=== PATIENT | male | born 1985 | race Caucasian/White ===

== ENCOUNTER 2017-04-02 16:11 | Emergency (ER) | payer SELFPAY ==
[2017-04-02 16:21] VITALS: BMI 30.1
--- NOTE | 2017-04-02 16:45 | PDOC ---
History of Present Illness - History of Present Illness Initial Comments: 04/02/17 16:59 Patient is a 31 year old male with no significant medical hx who is presenting to the ED with one day of body aches, subjective fever, sore throat, and nasal congestion. Patient states hes been working outside all day and felt dizzy while he was driving, as if he was going to pass out. He reports his symptoms started today, with subjective fevers described as hot and cold flashes. The patient also complains of all over body aches, nasal congestion, and sore throat. Denies abdominal pain, nausea, vomiting, chest pain, shortness of breath , diarrhea, or urinary complaints. <Tana Silva - Last Filed: 04/02/17 16:59> <Mily Blue - Last Filed: 04/04/17 07:51> - General Chief Complaint: Lightheaded Stated Complaint: DIZZINESS Time Seen by Provider: 04/02/17 16:35 Past History <Tana Silva - Last Filed: 04/02/17 16:59> - Past Medical History Other medical history: NONE - Immunization History Td Vaccination: (unknown) TDAP Vaccination: (unknown) Immunization Up to Date: Yes - Psycho/Social/Smoking Cessation Hx Anxiety: No Suicidal Ideation: No Smoking Status: Yes Smoking History: Never smoked Years of Tobacco Use: 0 Number of Cigarettes Smoked Daily: 10 Cigars Per Day: 0 Hx Alcohol Use: No Drug/Substance Use Hx: No Substance Use Type: None <Mily Blue - Last Filed: 04/04/17 07:51> - Past Medical History Allergies/Adverse Reactions: Allergies Allergy/AdvReac Type Severity Reaction Status Date / Time No Known Allergies Allergy Verified 04/02/17 16:22 Home Medications: Ambulatory Orders No Home Medications 0 dose .ROUTE UTDICT 06/27/13 Review of Systems - Review of Systems Comments:: 04/02/17 16:59 GENERAL/CONSTITUTIONAL: Fever, chills, body aches. No weakness. HEAD, EYES, EARS, NOSE AND THROAT: Nasal congestion, sore throat. No change in vision. No ear pain or discharge. CARDIOVASCULAR: No chest pain or shortness of breath. RESPIRATORY: No cough, wheezing, or hemoptysis. GASTROINTESTINAL: No nausea, vomiting, diarrhea or constipation. GENITOURINARY: No dysuria, frequency, or change in urination. MUSCULOSKELETAL: No joint or muscle swelling or pain. No neck or back pain. ENDOCRINE: No increased thirst. No abnormal weight change. SKIN: No rash NEUROLOGIC: No headache, vertigo, loss of consciousness, or change in strength/ sensation. <Tana Silva - Last Filed: 04/02/17 16:59> *Physical Exam - Vital Signs Last Vital Signs Temp Pulse Resp BP Pulse Ox 99.6 F 108 H 20 133/88 97 04/02/17 16:18 04/02/17 16:18 04/02/17 16:18 04/02/17 16:18 04/02/17 16:18 <Tana Silav - Last Filed: 04/02/17 16:59> - Vital Signs Last Vital Signs Temp Pulse Resp BP Pulse Ox 99.6 F 108 H 20 133/88 97 04/02/17 16:18 04/02/17 16:18 04/02/17 16:18 04/02/17 16:18 04/02/17 16:18 - Physical Exam Comments: GENERAL: Awake, alert, and fully oriented, in no acute distress. +Facial flushing. HEAD: No signs of trauma EYES: PERRLA, EOMI, sclera anicteric, conjunctiva clear ENT: Auricles normal inspection, hearing grossly normal, nares patent, oropharynx erythematous with B/L tonsillar hypertrophy. Dry mucosa NECK: Normal ROM, supple, no lymphadenopathy, JVD, or masses LUNGS: Breath sounds equal, clear to auscultation bilaterally. No wheezes, and no crackles HEART: Tachycardia, normal S1 and S2, no murmurs, rubs or gallops ABDOMEN: Soft, nontender, normoactive bowel sounds. No guarding, no rebound. No masses EXTREMITIES: Normal range of motion, no edema. No clubbing or cyanosis. No cords, erythema, or tenderness NEUROLOGICAL: Cranial nerves II through XII grossly intact. Normal speech, normal gait SKIN: Warm, Dry, normal turgor, no rashes or lesions noted. <Mily Blue - Last Filed: 04/04/17 07:51> ED Treatment Course - LABORATORY CBC & Chemistry Diagram: 04/02/17 18:07 04/02/17 18:07 <Mily Blue - Last Filed: 04/04/17 07:51> Medical Decision Making - Medical Decision Making Pt improved significantly with IV hydration and antipyretics. He has symptoms of URI which are likely source of fever- nasal congestion, cough. Stable for DC home. <Mily Blue - Last Filed: 04/04/17 07:51> *DC/Admit/Observation/Transfer - Attestations Scribe Attestion: 04/02/17 17:01 Documentation prepared by Tana Silva, acting as biomedical manager for Mily Blue MD. <Tana Silva - Last Filed: 04/02/17 16:59> - Discharge Dispostion Admit: No <Mily Blue - Last Filed: 04/04/17 07:51> Diagnosis at time of Disposition: Fever Qualifiers: Fever type: unspecified Qualified Code(s): R50.9 - Fever, unspecified - Discharge Dispostion Disposition: HOME Condition at time of disposition: Stable - Patient Instructions Printed Discharge Instructions: DI for Fever (Symptom) -- Adult
[2017-04-02] MEDS ORDERED: SODIUM CHLORIDE 1,000 ML IV STA ×2 (16:54→20:57)
[2017-04-02] MEDS ORDERED: KETOROLAC TROMETHAMINE 30 MG/1 ML VIAL IVPUSH ONE (16:54)
[2017-04-02] MEDS ORDERED: KETOROLAC TROMETHAMINE 30 MG/1 ML VIAL ONE (17:54)
[2017-04-02 18:41] LABS: BASOPHIL 0.2 % (0-2.0); MCH 30.1 pg (25.7-33.7); MCHC 34.1 g/dl (32.0-35.9); MEAN CELL VOLUME 88.2 fl (80-96); MEAN PLT VOLUME 9.7 fl (7.5-11.1); NEUTROPHILS 89.3 % (42.8-82.8); PLATELET COUNT 195 K/MM3 (134-434); RDW 12.7 % (11.9-15.9); WHITE BLOOD COUNT 13.7 K/mm3 (4.0-10.0)
[2017-04-02 19:08] LABS: ALK PHOS 92 U/L (45-117); ANION GAP 9 (8-16); BILIRUBIN,TOTAL 0.7 mg/dL (0.2-1.0); CO2 27 mmol/L (21-32); CREATININE 0.9 mg/dL (0.7-1.3); GLUCOSE,RANDOM 105 mg/dL (74-106); SGOT/AST 28 U/L (15-37); SGPT/ALT 90 U/L (12-78); TOT PROT 7.1 g/dl (6.4-8.2)
[2017-04-02] MEDS ORDERED: ACETAMINOPHEN 325 MG TABLET (FP) PO ONE (21:11)
[2017-04-02] MEDS ORDERED: ACETAMINOPHEN 325 MG TABLET (FP) ONE (21:14)
[2017-04-02] MEDS ORDERED: IBUPROFEN 600 MG TABLET (FP) PO ONE ×2 (23:00→23:12)
[2017-04-02 23:17] VITALS: BP 126/74; PULSE 84; TEMP 98.8
== END 2017-04-02 23:17 | disposition home or self-care (01) ==
LOC: JER 16:11
PROC: 3E0337Z Introduction of Electrolytic and Water Balance Substance into Peripheral Vein, Percutaneous Approach (ICD-10-PCS; principal; 2017-04-02)
PROC: 3E0333Z Introduction of Anti-inflammatory into Peripheral Vein, Percutaneous Approach (ICD-10-PCS; 2017-04-02)
DX: R50.9 Fever, unspecified (principal)
CPT/HCPCS: 36415; 71020-TC; 80053; 85025; 87070; 87430; 99284-25

== ENCOUNTER 2017-12-29 09:14 | Inpatient (IN) | payer SELFPAY ==
[2017-12-29 09:32] VITALS: BMI 31.5
--- NOTE | 2017-12-29 11:14 | PDOC ---
History of Present Illness - General History Source: Patient Exam Limitations: No Limitations - History of Present Illness Initial Comments: 12/29/17 16:20 The patient is a 32 year old male, with no significant past medical history, who presents to the emergency department with, progressively worsening constant right upper quadrant abdominal pain beginning 6 days ago. The patient states the right upper quadrant abdominal pain began at rest and describes the pain as a sharp burning pain rated 10/10 that feels like a band like sensation radiating around to his right back and right lower quadrant. He denies any trauma to the area. The patient states the right upper quadrant abdominal pain is made worse with movement and after eating. The patient states he has been able to tolerate foods and liquids but has been eating less secondary to the abdominal pain. The patient reports one episode of nausea with bright yellow emesis (non bloody) this morning. The patient states his last bowel movement was last night which he describes as normal (denies melena, hematochezia or diarrhea). There patient also states he has had intermittent lower right sided chest pain when he breathes but states he does not experience the right sided chest pain all of the time. He denies any recent fevers, chills, or headache. He denies any recent diarrhea or constipation. He denies any recent shortness of breath. He denies any recent dysuria, frequency, urgency or hematuria. Allergies: NKA Primary Care Physician: Dr. Kannan Reese <Calixto Frye - Last Filed: 12/29/17 16:20> <John Lucas - Last Filed: 12/29/17 17:48> - General Chief Complaint: Pain Stated Complaint: CHEST PAIN, ABD PAIN Time Seen by Provider: 12/29/17 10:35 Past History <Calixto Frye - Last Filed: 12/29/17 16:20> - Past Medical History COPD: No DVT: No - Immunization History Td Vaccination: (unknown) TDAP Vaccination: (unknown) Immunization Up to Date: Yes - Suicide/Smoking/Psychosocial Hx Smoking Status: Yes Smoking History: Never smoked Years of Tobacco Use: 0 Have you smoked in the past 12 months: No Number of Cigarettes Smoked Daily: 10 Cigars Per Day: 0 Information on smoking cessation initiated: Yes Hx Alcohol Use: No Drug/Substance Use Hx: No Substance Use Type: None <John Lucas - Last Filed: 12/29/17 17:48> - Past Medical History Allergies/Adverse Reactions: Allergies Allergy/AdvReac Type Severity Reaction Status Date / Time No Known Allergies Allergy Verified 12/29/17 09:28 Home Medications: Ambulatory Orders No Home Medications 0 dose .ROUTE UTDICT 06/27/13 Review of Systems - Review of Systems Comments:: 12/29/17 16:21 GENERAL/CONSTITUTIONAL: No fever or chills. No weakness. HEAD, EYES, EARS, NOSE AND THROAT: No change in vision. No ear pain or discharge. No sore throat. GASTROINTESTINAL: +Right upper quadrant abdominal pain. +Nausea. +Vomiting. No diarrhea or constipation. GENITOURINARY: No dysuria, frequency, or change in urination. CARDIOVASCULAR: +Right sided chest pain. No shortness of breath. RESPIRATORY: No cough, wheezing, or hemoptysis. MUSCULOSKELETAL: No joint or muscle swelling or pain. No neck or back pain. SKIN: No rash NEUROLOGIC: +Dizziness (Resolved). No headache, loss of consciousness, or change in strength/sensation. ENDOCRINE: No increased thirst. No abnormal weight change. HEMATOLOGIC/LYMPHATIC: No anemia, easy bleeding, or history of blood clots. ALLERGIC/IMMUNOLOGIC: No hives or skin allergy. <Calixto Frye - Last Filed: 12/29/17 16:20> *Physical Exam - Vital Signs Last Vital Signs Temp Pulse Resp BP Pulse Ox 98.6 F 72 18 167/115 100 12/29/17 09:29 12/29/17 09:29 12/29/17 09:29 12/29/17 09:29 12/29/17 09:29 - Physical Exam Comments: 12/29/17 16:21 GENERAL: Awake, alert, and fully oriented, in no acute distress HEAD: No signs of trauma EYES: PERRLA, EOMI, sclera anicteric, conjunctiva clear ENT: Auricles normal inspection, hearing grossly normal, nares patent, oropharynx clear without exudates. Moist mucosa NECK: Normal ROM, supple, no lymphadenopathy, JVD, or masses LUNGS: Breath sounds equal, clear to auscultation bilaterally. No wheezes, and no crackles HEART: Regular rate and rhythm, normal S1 and S2, no murmurs, rubs or gallops ABDOMEN: +Right upper quadrant tenderness. +cardoza's sign. Soft, normoactive bowel sounds. No guarding, no rebound. EXTREMITIES: Normal range of motion, no edema. No clubbing or cyanosis. No cords , erythema, or tenderness BACK: No midline spinal tenderness in cervical/thoracic/lumbar region NEUROLOGICAL: Normal speech, cranial nerves intact, negative pronator drift, 5/ 5 strength in all 4 extremities, normal sensation to light touch in all 4 extremities, normal cerebellar exam, normal gait, normal reflexes and tone SKIN: Warm, Dry, normal turgor, no rashes or lesions noted. Bedside sono with thickened GB wall w/o pericholecystic fluid and large stone in GB neck with shadowing. <Calixto Frye - Last Filed: 12/29/17 16:20> - Vital Signs Last Vital Signs Temp Pulse Resp BP Pulse Ox 98.6 F 72 18 167/115 100 12/29/17 09:29 12/29/17 09:29 12/29/17 09:29 12/29/17 09:29 12/29/17 09:29 <John Lucas - Last Filed: 12/29/17 17:48> ED Treatment Course - LABORATORY CBC & Chemistry Diagram: 12/29/17 11:32 12/29/17 11:32 - ADDITIONAL ORDERS Additional order review: Laboratory Results 12/29/17 12/29/17 11:54 11:32 Sodium 143 Potassium 4.6 Chloride 106 Carbon Dioxide 28 Anion Gap 9 BUN 11 Creatinine 0.9 Creat Clearance w eGFR > 60 Random Glucose 94 Calcium 9.5 Total Bilirubin 0.5 D AST 26 ALT 97 H Alkaline Phosphatase 92 Troponin I < 0.02 Total Protein 7.4 Albumin 4.0 Lipase 166 Urine Color Ltyellow Urine Appearance Slcloudy Urine pH 7.0 Ur Specific [place] 1.020 Urine Protein Negative Urine Glucose (UA) Negative Urine Ketones Negative Urine Blood Negative Urine Nitrite Negative Urine Bilirubin Negative Urine Urobilinogen Negative Ur Leukocyte Esterase Negative 12/29/17 11:32 RBC 5.17 MCV 86.7 MCHC 33.6 RDW 13.5 MPV 9.4 Neutrophils % 68.1 D Lymphocytes % 22.3 D Monocytes % 7.0 Eosinophils % 2.0 D Basophils % 0.6 - RADIOLOGY Radiograph Interpretation: 12/29/17 13:11 EXAM#: TYPE/EXAM: RESULT: [id number] RAD/CHEST X-RAY PORTABLE* AP portable chest: Epigastric pain Since 04/02/2017, there are clear lungs and sharp angles. There is a large heart. The angles are sharp. The bones and soft tissues are intact. Aortic and hilar contours are unremarkable. Impression: Large heart. No acute chest pathology. Slight change since 2016. Reported By: Eric Carrillo MD 12/29/17 14:08 EXAM#: TYPE/EXAM: RESULT: [id number] US/ABDOMEN US -LIMITED HISTORY PROVIDED: Right upper quadrant pain. Real time examination of the abdomen demonstrates the following: The gallbladder is slightly thickened and does contain a 1.4 cm calculus wedged within the neck of the gallbladder. The party director describes a positive Cardoza's sign and the possibility of acute cholecystitis cannot be excluded. Clinical correlation is advised. A follow-up HIDA scan may be warranted. There is no evidence of intra or extrahepatic biliary duct dilatation. The liver is normal in size. It is hyperechoic in texture consistent with diffuse fatty infiltration. No discrete intrahepatic masses are identified. Hepatopedal flow is documented within the main portal vein. The pancreas is poorly visualized due to overlying bowel gas. There is no evidence of hydronephrosis or acute abnormalities of the right kidney. There is no evidence of AAA. The IVC is patent. IMPRESSION: 1. Thick-walled gallbladder with large calculus and positive Cardoza's sign. The possibility of acute cholecystitis cannot be excluded. Clinical correlation and follow-up is recommended. 2. Diffuse fatty infiltration of the liver. Please see above discussion. Reported By: Ronaldo Damico MD - Medications Given in the ED: ED Medications Discontinued Medications Generic Name Dose Route Start Last Admin Trade Name Freq PRN Reason Stop Dose Admin Acetaminophen 1,000 mg 12/29/17 11:17 12/29/17 11:49 Ofirmev Injection - IVPB 12/29/17 11:18 1,000 mg ONCE ONE Administration Sodium Chloride 1,000 mls @ 1,000 mls/hr 12/29/17 11:16 12/29/17 11:49 Normal Saline - IV 12/29/17 12:15 1,000 mls/hr ASDIR STA Administration Famotidine/Sodium Chloride 20 mg in 50 mls @ 100 mls/hr 12/29/17 12:15 12:23 Pepcid 20 Mg Premixed Ivpb - IVPB 12/29/17 12:44 100 mls/hr ONCE ONE Administration Ondansetron HCl 4 mg 12/29/17 11:16 12/29/17 11:49 Zofran Injection IVPUSH 12/29/17 11:17 4 mg ONCE ONE Administration <Calixto Frye - Last Filed: 12/29/17 16:20> - LABORATORY CBC & Chemistry Diagram: 12/29/17 11:32 12/29/17 11:32 <John Lucas - Last Filed: 12/29/17 17:48> Medical Decision Making - Medical Decision Making 12/29/17 14:[address] Phelps at 2:12pm. Case discussed. Call placed to Dr. Jaramillo at 2:13 pm. Pending call back. Second call placed to Dr. Jaramillo at 3:20 pm. Case discussed. <Calixto Frye - Last Filed: 12/29/17 16:20> - Medical Decision Making 12/29/17 11:30 32-year-old male with no significant past medical history presents emergency Department with 6 days of progressive right upper quadrant and right flank pain. Vitals in the ED remarkable for hypertension on arrival, however on my exam blood pressure down to 154/90. Differential includes but not limited to cholecystitis versus appendicitis versus pancreatitis versus gastritis. Plan: -labs -US -UA -pain control -antiemetics 12/29/17 15:[address] Phelps who will see pt. Discussed case with Dr. jaramillo who accepts pt to med/surg Case discussed in detail with admitting physician including history, physical exam and ancillary studies. Admitting physician has assumed care for the patient, will follow all pending diagnostics and will complete the evaluation and treatment. <John Lucas - Last Filed: 12/29/17 17:48> *DC/Admit/Observation/Transfer - Attestations Scribe Attestion: 12/29/17 14:14 Documentation prepared by Calixto Frye, acting as center medical director for John Lucas MD. <Calixto Frye - Last Filed: 12/29/17 16:20> - Discharge Dispostion Admit: Yes - Attestations Physician Attestion: 12/29/17 15:56 I, Dr. John Lucas MD, attest that this document has been prepared under my direction and personally reviewed by me in its entirety. I further attest, that it accurately reflects all work, treatment, procedures and medical decision -making performed by me. <John Lucas - Last Filed: 12/29/17 17:48> Diagnosis at time of Disposition: Acute calculous cholecystitis - Discharge Dispostion Condition at time of disposition: Stable
[2017-12-29] MEDS ORDERED: SODIUM CHLORIDE 1,000 ML IV STA (11:16)
[2017-12-29] MEDS ORDERED: ONDANSETRON 4 MG/2 ML VIAL IVPUSH ONE (11:16)
[2017-12-29] MEDS ORDERED: ACETAMINOPHEN 1000 MG/100 ML VIAL (NON FORMULARY) IVPB ONE (11:17)
[2017-12-29] MEDS ORDERED: ONDANSETRON 4 MG/2 ML VIAL ONE (11:38)
[2017-12-29] MEDS ORDERED: ACETAMINOPHEN INJECTION 100 ML IVPB ONE (11:38)
[2017-12-29 11:56] LABS: BASO % 0.6 % (0-2.0); HEMATOCRIT 44.9 % (35.4-49); HEMOGLOBIN 15.1 GM/dL (11.7-16.9); LYMPH % 22.3 % (8-40); MCH 29.1 pg (25.7-33.7); MCHC 33.6 g/dl (32.0-35.9); MEAN CELL VOLUME 86.7 fl (80-96); MEAN PLT VOLUME 9.4 fl (7.5-11.1); NEUT % 68.1 % (42.8-82.8); PLATELET COUNT 258 K/MM3 (134-434); RBC 5.17 M/mm3 (4.00-5.60); RDW 13.5 % (11.9-15.9)
[2017-12-29 12:08] LABS: URINE APPEARANCE SLCLOUDY; URINE BILIRUBIN NEGATIVE (<2.0 mg/dL); URINE BLOOD NEGATIVE (NEGATIVE); URINE COLOR LTYELLOW; URINE GLUCOSE (UA) NEGATIVE (NEGATIVE); URINE KETONE NEGATIVE (NEGATIVE); URINE LEUK ESTERASE NEGATIVE (NEGATIVE); URINE NITRITE NEGATIVE (NEGATIVE); URINE PROTEIN NEGATIVE (NEGATIVE); URINE UROBILINOGEN NEGATIVE mg/dL (0.2-1.0)
[2017-12-29] MEDS ORDERED: FAMOTIDINE 20 MG/50 ML IVPB 20 MG/50 ML MG IVPB ONE (12:15)
[2017-12-29 12:28] LABS: ANION GAP 9 (8-16); BLOOD UREA NITROGEN 11 mg/dL (7-18); CALCIUM 9.5 mg/dL (8.5-10.1); CHLORIDE 106 mmol/L (98-107); CO2 28 mmol/L (21-32); CREATININE 0.9 mg/dL (0.7-1.3); GLUCOSE,RANDOM 94 mg/dL (74-106); LIPASE 166 U/L (73-393); POTASSIUM 4.6 mmol/L (3.5-5.1); SGOT/AST 26 U/L (15-37); SGPT/ALT 97 U/L (12-78); SODIUM 143 mmol/L (136-145)
[2017-12-29 12:32] LABS: ALK PHOS 92 U/L (45-117); BILIRUBIN,TOTAL 0.5 mg/dL (0.2-1.0); TOT PROT 7.4 g/dl (6.4-8.2)
[2017-12-29] MEDS ORDERED: AMPICILLIN NA/SULBACTAM NA 1.5 GM in SODIUM CHLORIDE 100 ML IVPB ONE ×2 (14:26→16:00)
--- NOTE | 2017-12-29 14:41 | EKG ---
Test Reason : Blood Pressure : / mmHG Vent. Rate : 075 BPM Atrial Rate : 075 BPM P-R Int : 156 ms QRS Dur : 098 ms QT Int : 380 ms P-R-T Axes : 039 045 029 degrees QTc Int : 424 ms NORMAL SINUS RHYTHM NORMAL ECG NO PREVIOUS ECGS AVAILABLE Confirmed by FRANCINE PARISI MD ([id number]) on 12/29/2017 2:41:22 PM Referred By: Confirmed By:FRANCINE PARISI MD
[2017-12-29] MEDS: LACTATED RINGERS SOLUTION 1,000 ML/1,000 ML INFUS.BAG IV SCH (15:23)
--- NOTE | 2017-12-29 19:42 | HP ---
Admitting History and Physical - Admission History of Present Illness: Pt is a 32 y/o male w/ no significant PMH who presented to the ER bc of abdominal pain.Pt states for about the past week he has been having this RUQ abdominal pain wc at times feels like a band like pain across his entire abdomen to his back. Pt had an episode of vomiting this am. Pt has noticed that the pain was worse after eating. In the er pt had abdominal US wc showed thick walled gallbladder w/ large calculus. - Past Surgical History Past Surgical History: Yes: None - Smoking History Smoking history: Never smoked Have you smoked in the past 12 months: No Aproximately how many cigarettes per day: 10 - Alcohol/Substance Use Hx Alcohol Use: No Home Medications - Allergies Allergies/Adverse Reactions: Allergies Allergy/AdvReac Type Severity Reaction Status Date / Time No Known Allergies Allergy Verified 12/29/17 09:28 - Home Medications Home Medications: Ambulatory Orders No Home Medications 0 dose .ROUTE UTDICT 06/27/13 Family Disease History - Family Disease History Family History: Unremarkable Review of Systems - Review of Systems Constitutional: reports: No Symptoms Eyes: reports: No Symptoms HENT: reports: No Symptoms Neck: reports: No Symptoms Cardiovascular: reports: No Symptoms Respiratory: reports: No Symptoms Gastrointestinal: reports: Abdominal Pain, Nausea, Vomiting Genitourinary: reports: No Symptoms Physical Examination Vital Signs: Vital Signs Temperature 98.1 F 12/29/17 18:58 Pulse Rate 61 12/29/17 18:58 Respiratory Rate 16 12/29/17 18:58 Blood Pressure 113/60 12/29/17 18:58 O2 Sat by Pulse Oximetry (%) 99 12/29/17 19:02 Constitutional: Yes: Well Nourished Eyes: Yes: WNL HENT: Yes: WNL Neck: Yes: WNL, Supple Cardiovascular: Yes: WNL, Regular Rate and Rhythm Respiratory: Yes: WNL, Regular, CTA Bilaterally Gastrointestinal: Yes: Abdomen, Obese, Tenderness (RUQ tenderness on palpation ( -) guarding/rebound) Labs: CBC, BMP 12/29/17 11:32 12/29/17 11:32 Problem List - Problems (1) Abdominal pain Assessment/Plan: Probalby due to acute cholecystitis Cont IVF/NPO Surgical consult Code(s): R10.9 - UNSPECIFIED ABDOMINAL PAIN
[2017-12-30] MEDS: LACTATED RINGERS SOLUTION 1,000 ML/1,000 ML INFUS.BAG IV SCH ×2 (02:18→12:11)
[2017-12-30 07:55] LABS: BASO % 0.7 % (0-2.0); HEMATOCRIT 43.7 % (35.4-49); HEMOGLOBIN 14.8 GM/dL (11.7-16.9); LYMPH % 25.2 % (8-40); MCH 29.2 pg (25.7-33.7); MCHC 33.8 g/dl (32.0-35.9); MEAN CELL VOLUME 86.5 fl (80-96); MEAN PLT VOLUME 9.2 fl (7.5-11.1); MONO % 6.5 % (3.8-10.2); NEUT % 65.6 % (42.8-82.8); PLATELET COUNT 233 K/MM3 (134-434); RBC 5.05 M/mm3 (4.00-5.60); RDW 13.5 % (11.9-15.9); WHITE BLOOD COUNT 6.7 K/mm3 (4.0-10.0)
[2017-12-30 08:09] LABS: INR 0.99 (0.82-1.09); PROTHROMBIN TIME (PATIENT) 11.2 SEC (9.98-11.88)
--- NOTE | 2017-12-30 08:11 | CONSULT ---
- Consultation REQUESTING PROVIDER: Ameya Phelps (General Surgery) CONSULT REQUEST: We have been asked to surgically evaluate this patient for RUQ abd pain. PCP: Mily Jaramillo HPI: Called to evaluate 32 yo male without any PMHx. Presents to [facility] ED with c/o RUQ pain radiating to right flank x 1 week. He thought it was "gas". Using Tylenol and rolaids without relief. States he had a singulair episode of n/v. Never experienced this before. While in the ED patient had an ultrasound which identified a thickened gb wall, large calculus, sonographic cardoza's sign. Patient received Unasyn 1.5 gm. Currently resting comfortably. Denies fever, chills, cp, irregular heart rate, cough, harley, sob, melena, hematochezia, dysuria, frequency, urgency, hesitancy, or hematuria. PMHx: Denies. PSHx: Denies. Home Meds: Denies. Allergies: NKDA ROS: All systems reviewed and considered negative except for what's contained in HPI. PHYSICAL EXAM: GENERAL: Awake, alert, and fully oriented, in no acute distress. HEAD: Normal with no signs of trauma. EYES: PERRL, sclera anicteric, conjunctiva clear. NECK: Normal ROM, supple without lymphadenopathy, JVD, or masses. LUNGS: cta bilat anteriorly HEART: rrr ABD: Soft, + Cardoza's sign. Mild RUQ guarding. MUSCULOSKELETAL: No CVA tenderness bilat UE: 2+ pulses, warm, well-perfused. No cyanosis. Cap refill <2 seconds. No peripheral edema. LE: 2+ pulses, warm, well-perfused. No calf tenderness. No peripheral edema. NEUROLOGICAL: Normal speech, gait not observed. PSYCH: Cooperative. Good eye contact. Appropriate mood and affect. SKIN: Warm, dry, normal turgor, no rashes or lesions noted. Last Vital Signs Temp Pulse Resp BP Pulse Ox 97.8 F 59 L 20 125/70 98 12/30/17 06:00 12/30/17 06:00 12/30/17 06:00 12/30/17 06:00 12/29/17 21:00 Hepatic Panel Total Bilirubin 0.5 mg/dL (0.2-1.0) D 12/29/17 11:32 AST 26 U/L (15-37) 12/29/17 11:32 ALT 97 U/L (12-78) H 12/29/17 11:32 Alkaline Phosphatase 92 U/L (45-117) 12/29/17 11:32 Albumin 4.0 g/dl (3.4-5.0) 12/29/17 11:32 Lab Results WBC 7.0 K/mm3 (4.0-10.0) D 12/29/17 11:32 RBC 5.17 M/mm3 (4.00-5.60) 12/29/17 11:32 Hgb 15.1 GM/dL (11.7-16.9) 12/29/17 11:32 Hct 44.9 % (35.4-49) 12/29/17 11:32 MCV 86.7 fl (80-96) 12/29/17 11:32 MCHC 33.6 g/dl (32.0-35.9) 12/29/17 11:32 RDW 13.5 % (11.9-15.9) 12/29/17 11:32 Plt Count 258 K/MM3 (134-434) D 12/29/17 11:32 Sodium 143 mmol/L (136-145) 12/29/17 11:32 Potassium 4.6 mmol/L (3.5-5.1) 12/29/17 11:32 Chloride 106 mmol/L (98-107) 12/29/17 11:32 Carbon Dioxide 28 mmol/L (21-32) 12/29/17 11:32 Anion Gap 9 (8-16) 12/29/17 11:32 BUN 11 mg/dL (7-18) 12/29/17 11:32 Creatinine 0.9 mg/dL (0.7-1.3) 12/29/17 11:32 Random Glucose 94 mg/dL (74-106) 12/29/17 11:32 Calcium 9.5 mg/dL (8.5-10.1) 12/29/17 11:32 Problem List - Problems (1) Acute calculous cholecystitis Assessment/Plan: NPO IVF GI / DVT PPX Type and Screen Tylenol for fever > 100.3F Pain management prn Going to OR today for Lap Nelly (12pm) Dr. Jaramillo made aware of surgical plan Above plan discussed with Dr. Phelps and agrees. Code(s): K80.00 - CALCULUS OF GALLBLADDER W ACUTE CHOLECYST W/O OBSTRUCTION Visit type - Case Type Case Type: ED Admission - Emergency Emergency Visit: Yes ED Registration Date: 12/29/17 Care time: The patient presented to the Emergency Department on the above date and was hospitalized for further evaluation of their emergent condition. - New patient This patient is new to me today: Yes Date on this admission: 12/30/17
[2017-12-30 08:17] LABS: CHLORIDE 105 mmol/L (98-107); POTASSIUM 4.3 mmol/L (3.5-5.1); SODIUM 143 mmol/L (136-145)
[2017-12-30 08:26] LABS: ALBUMIN 3.7 g/dl (3.4-5.0); ALK PHOS 81 U/L (45-117); ANION GAP 10 (8-16); BILIRUBIN,TOTAL 0.8 mg/dL (0.2-1.0); BLOOD UREA NITROGEN 10 mg/dL (7-18); CALCIUM 9.2 mg/dL (8.5-10.1); CO2 28 mmol/L (21-32); CREATININE 0.9 mg/dL (0.7-1.3); GLUCOSE,RANDOM 96 mg/dL (74-106); SGOT/AST 38 U/L (15-37); SGPT/ALT 103 U/L (12-78); TOT PROT 6.5 g/dl (6.4-8.2)
[2017-12-30] MEDS ORDERED: BUPIVACAINE HCL/PF 0.5% (5MG/ML) 10 ML VIAL ONE (11:11)
[2017-12-30] MEDS ORDERED: ROCURONIUM BROMIDE 50 MG/5 ML VIAL ONE ×3 (12:54→17:12)
[2017-12-30] MEDS ORDERED: MIDAZOLAM HCL 2 MG/2 ML SINGLE DOSE VIAL ONE (12:54)
[2017-12-30] MEDS ORDERED: SUCCINYLCHOLINE CHLORIDE 200 MG/10 ML VIAL ONE (12:54)
[2017-12-30] MEDS ORDERED: LIDOCAINE HCL/PF 2% SDV 5ML VIAL ONE (12:55)
[2017-12-30] MEDS ORDERED: ONDANSETRON 4 MG/2 ML VIAL IVPUSH PRN ×4 (13:08→20:19)
[2017-12-30] MEDS ORDERED: PROPOFOL 20 ML ONE ×3 (13:11→19:15)
[2017-12-30] MEDS ORDERED: LACTATED RINGERS SOLUTION 1,000 ML IV SCH (13:15)
[2017-12-30] MEDS ORDERED: ceFAZolin SODIUM 1 GM VIAL IVPB ONE (13:22)
[2017-12-30] MEDS ORDERED: DEXAMETHASONE SOD PHOSPHATE 4 MG/1 ML VIAL ONE (13:23)
[2017-12-30] MEDS ORDERED: KETOROLAC TROMETHAMINE 30 MG/1 ML VIAL ONE (13:23)
[2017-12-30] MEDS ORDERED: ceFAZolin SODIUM 1 GM VIAL ONE ×2 (13:30→18:44)
[2017-12-30] MEDS ORDERED: SODIUM CHLORIDE 0.9% P/F 10 ML VIAL IJ ONE (13:30)
[2017-12-30] MEDS ORDERED: SEVOFLURANE 250 ML BTL ONE (15:37)
[2017-12-30] MEDS ORDERED: IOHEXOL 180 MG/1 ML ML IJ ONE (18:06)
[2017-12-30] MEDS ORDERED: HYDROmorphone *PCA* 6MG/30ML DISP.SYRIN PCA ONE (18:56)
[2017-12-30] MEDS ORDERED: NEOSTIGMINE METHYLSULFATE 0.5 MG/ML - 10 ML MDV ONE (19:09)
[2017-12-30] MEDS ORDERED: GLYCOPYRROLATE 0.2 MG/1 ML VIAL ONE (19:10)
[2017-12-30] MEDS ORDERED: LACTATED RINGERS SOLUTION 1,000 ML/1,000 ML INFUS.BAG IV SCH (19:15)
[2017-12-30] MEDS ORDERED: ACETAMINOPHEN INJECTION 100 ML IVPB ONE (19:55)
[2017-12-30] MEDS: ACETAMINOPHEN 1000 MG/100 ML VIAL (NON FORMULARY) IVPB PRN (20:00)
[2017-12-30] MEDS: HYDROmorphone *PCA* 6MG/30ML DISP.SYRIN PCA SCH (20:00)
[2017-12-30] MEDS ORDERED: PROMETHAZINE HCL 25 MG/1 ML VIAL IVPB PRN (20:01)
[2017-12-30] MEDS ORDERED: PROMETHAZINE HCL 25 MG/1 ML VIAL IVPUSH PRN (20:01)
[2017-12-30] MEDS: LACTATED RINGERS SOLUTION 1,000 ML IV SCH (22:00)
[2017-12-30] MEDS: HEPARIN NA (PORCINE) 5,000 UNITS/ML 1ML VIAL SQ SCH (23:05)
[2017-12-31] MEDS: HYDROmorphone *PCA* 6MG/30ML DISP.SYRIN PCA SCH ×2 (00:30→11:34)
--- NOTE | 2017-12-31 01:00 | PN ---
Progress Note, Physician History of Present Illness: Pt seen and examined 12/30/17 - Current Medication List Current Medications: Active Medications Acetaminophen (Ofirmev Injection -) 1,000 mg IVPB Q6H PRN PRN Reason: PAIN LEVEL 1 - 3 Last Admin: 12/30/17 20:00 Dose: 1,000 mg Diphenhydramine HCl (Benadryl Injection -) 12.5 mg IVPUSH ONCE PRN PRN Reason: FOR ITCHING Heparin Sodium (Porcine) (Heparin -) 5,000 unit SQ TID JACKSON Last Admin: 12/30/17 23:05 Dose: 5,000 unit Hydromorphone HCl (Dilaudid Nuclear Reactor Technician -) 0 mg SET UP MECHANIC COIL WINDING MACHINES SET UP MECHANIC COIL WINDING MACHINES JACKSON PRN Reason: Protocol Stop: 01/06/18 20:02 Last Admin: 12/31/17 00:30 Dose: 6 mg Cefazolin Sodium (Ancef 1 Gm Premixed Ivpb -) 1 gm in 50 mls @ 100 mls/hr IVPB Q8H-IV JACKSON Lactated Ringer's (Lactated Ringers Solution) 1,000 mls @ 125 mls/hr IV ASDIR [facility] Last Admin: 12/30/17 22:00 Dose: 0 mls Promethazine HCl (Phenergan Injection -) 12.5 mg IVPB Q6H PRN PRN Reason: NAUSEA AND/OR VOMITING - Objective Vital Signs: Vital Signs Temperature 98 F 12/30/17 22:20 Pulse Rate 78 12/30/17 22:20 Respiratory Rate 20 12/30/17 22:20 Blood Pressure 140/89 12/30/17 22:20 O2 Sat by Pulse Oximetry (%) 94 L 12/30/17 22:20 Constitutional: Yes: Well Nourished Neck: Yes: WNL, Supple Cardiovascular: Yes: WNL, Regular Rate and Rhythm Respiratory: Yes: WNL, Regular, CTA Bilaterally Gastrointestinal: Yes: Other ((+) incisional tenderness) Labs: CBC, BMP 12/30/17 06:35 12/30/17 06:35 INR, PTT INR 0.99 (0.82-1.09) 12/30/17 06:35 Problem List - Problems (1) Abdominal pain Assessment/Plan: S/P lap choley As per surgery Cont IVF Code(s): R10.9 - UNSPECIFIED ABDOMINAL PAIN
[2017-12-31] MEDS: CEFAZOLIN 1 GM/D5W 1 GM/50 ML BAG IVPB SCH ×3 (02:24→18:12)
[2017-12-31] MEDS: LACTATED RINGERS SOLUTION 1,000 ML IV SCH (04:05)
[2017-12-31] MEDS: HEPARIN NA (PORCINE) 5,000 UNITS/ML 1ML VIAL SQ SCH ×3 (06:10→22:07)
--- NOTE | 2017-12-31 07:05 | OP ---
Operative Note - Note: Operative Date: 12/30/17 Pre-Operative Diagnosis: acute cholecystitis/cholelithiasis Operation: lap gerber converted to open w/attempted IOC Findings: cholelithiasis/cholecystitis Post-Operative Diagnosis: Same as Pre-op Surgeon: Ameya Phelps Cutting And Creasing Press Operator: An Morrow Anesthesiologist/PAPER BOX MAKER: Yariel Cai Anesthesia: General Specimens Removed: gallbladder and stones Estimated Blood Loss (mls): 150 Drains & Tubes with Location: 10 mm JEREMY
--- NOTE | 2017-12-31 07:40 | SURG ---
Surgery Bridge Teacher Note Bridge Teacher: An Morrow PA-C Date of Service: 12/31/17 Diagnosis: acute cholecystitis/cholelithiasis Procedure: lap gerber converted to open w/attempted IOC I was present for the entirety of the operative procedure. For further detail, please refer to operative report. Visit type - Case Type Case Type: ED Admission - Emergency Emergency Visit: Yes ED Registration Date: 12/29/17 Care time: The patient presented to the Emergency Department on the above date and was hospitalized for further evaluation of their emergent condition. - New patient This patient is new to me today: Yes Date on this admission: 12/31/17
--- NOTE | 2017-12-31 08:14 | PN ---
Progress Note (short form) - Note Progress Note: POD#1 PT without nausea/emesis. Having some incisional pain. No flatus. OOB to chair this am, ambulating to the restroom and voiding on his own. Vital Signs Period Temp Pulse Resp BP Sys/Farmer Pulse Ox Last 24 Hr 97.5 F-98.6 F 57-95 16-30 122-151/43-89 94-100 JEREMY: 40 ml serosangrenous GEN: appears comfortable CV: RRR Lungs: CTA b/l ABD: dressing c/d/i. incisional tenderness. 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
[2017-12-31 08:31] LABS: BASO % 0.4 % (0-2.0); EOS % 0.2 % (0-4.5); HEMATOCRIT 41.2 % (35.4-49); HEMOGLOBIN 13.8 GM/dL (11.7-16.9); LYMPH % 10.9 % (8-40); MCH 28.9 pg (25.7-33.7); MCHC 33.5 g/dl (32.0-35.9); MEAN CELL VOLUME 86.3 fl (80-96); MEAN PLT VOLUME 9.2 fl (7.5-11.1); NEUT % 81.5 % (42.8-82.8); PLATELET COUNT 284 K/MM3 (134-434); RBC 4.78 M/mm3 (4.00-5.60); RDW 13.3 % (11.9-15.9); WHITE BLOOD COUNT 12.5 K/mm3 (4.0-10.0)
[2017-12-31] MEDS: ACETAMINOPHEN 1000 MG/100 ML VIAL (NON FORMULARY) IVPB PRN (08:35)
[2017-12-31 09:04] LABS: ALBUMIN 3.6 g/dl (3.4-5.0); ANION GAP 12 (8-16); BILIRUBIN,DIRECT 0.6 mg/dL (0.0-0.2); BILIRUBIN,TOTAL 1.4 mg/dL (0.2-1.0); BLOOD UREA NITROGEN 14 mg/dL (7-18); CALCIUM 8.6 mg/dL (8.5-10.1); CHLORIDE 103 mmol/L (98-107); CO2 25 mmol/L (21-32); CREATININE 0.8 mg/dL (0.7-1.3); GLUCOSE,RANDOM 103 mg/dL (74-106); SGOT/AST 146 U/L (15-37); SGPT/ALT 278 U/L (12-78); SODIUM 140 mmol/L (136-145); TOT PROT 6.4 g/dl (6.4-8.2)
[2017-12-31 09:05] LABS: ALK PHOS 100 U/L (45-117)
[2017-12-31] MEDS ORDERED: HYDROmorphone *PCA* 6MG/30ML DISP.SYRIN PCA SCH (10:53)
[2017-12-31] MEDS: KETOROLAC TROMETHAMINE 30 MG/1 ML VIAL IVPUSH SCH ×2 (11:25→18:12)
[2017-12-31] MEDS ORDERED: morphine SULFATE 4 MG/ML VIAL IVPUSH ONE (11:30)
--- NOTE | 2017-12-31 13:15 | CON.ID ---
Consult Consult Specialty:: infectious diseases Reason for Consultation:: leukocytosis - History of Present Illness Chief Complaint: abd pain History of Present Illness: 32 y/o male w/ no significant PMH who presented to the ER bc of abdominal pain.Pt states for about the past week he has been having this RUQ abdominal pain wc at times feels like a band like pain across his entire abdomen to his back.. Pt has noticed that the pain was worse after eating. In the er pt had abdominal US wc showed thick walled gallbladder w/ large calculus. patient was seen by surgery department and patient was taken to the operating room patient underwent surgery intitally lap gerber was tried which was converted to open choley currently the patient is c/o of abd pain other sandy doing of note is that the patients wbc has gone up patient is currently on post prophylaxis of abx which will tomorrow pain main issue - History Source History Provided By: Patient Limitations to Obtaining History: No Limitations - Past Surgical History Past Surgical History: Yes: None - Alcohol/Substance Use Hx Alcohol Use: No - Smoking History Smoking history: Never smoked Have you smoked in the past 12 months: No Aproximately how many cigarettes per day: 10 Home Medications - Allergies Allergies/Adverse Reactions: Allergies Allergy/AdvReac Type Severity Reaction Status Date / Time No Known Allergies Allergy Verified 12/29/17 09:28 - Home Medications Home Medications: Ambulatory Orders No Home Medications 0 dose .ROUTE UTDICT 06/27/13 Review of Systems - Review of Systems Constitutional: reports: No Symptoms Eyes: reports: No Symptoms HENT: reports: No Symptoms Neck: reports: No Symptoms Cardiovascular: reports: No Symptoms Respiratory: reports: No Symptoms Gastrointestinal: reports: Abdominal Pain Genitourinary: reports: No Symptoms Musculoskeletal: reports: No Symptoms Integumentary: reports: No Symptoms Neurological: reports: No Symptoms Endocrine: reports: No Symptoms Hematology/Lymphatic: reports: No Symptoms Psychiatric: reports: No Symptoms Physical Exam Vital Signs: Vital Signs Temperature 97.7 F 12/31/17 06:30 Pulse Rate 80 12/31/17 11:34 Respiratory Rate 20 12/31/17 11:34 Blood Pressure 129/75 12/31/17 11:34 O2 Sat by Pulse Oximetry (%) 94 L 12/30/17 22:20 Constitutional: Yes: Well Nourished, Obese Eyes: Yes: Conjunctiva Clear HENT: Yes: Atraumatic, Normocephalic Neck: Yes: Supple, Trachea Midline Cardiovascular: Yes: Regular Rate and Rhythm Respiratory: Yes: Regular, Poor Air Entry (bases) Gastrointestinal: Yes: Soft, Hypoactive Bowel Sounds Musculoskeletal: Yes: WNL Extremities: Yes: WNL Wound/Incision: Yes: Dressing Dry and Intact Neurological: Yes: Alert, Oriented Psychiatric: Yes: Alert, Oriented Labs: CBC, BMP 12/31/17 07:00 12/31/17 07:00 Assessment/Plan Problem List - Problems (1) Abdominal pain Code(s): R10.9 - UNSPECIFIED ABDOMINAL PAIN 2 leukocytosis (3) Elevated liver enzymes Code(s): R74.8 - ABNORMAL LEVELS OF OTHER SERUM ENZYMES plan continue abx for now will see how patient does and decide about the abx rest as per surgery patient otherwise stable
--- NOTE | 2017-12-31 16:05 | CON.GI ---
Consult Consult Specialty:: GI Referred by:: Dr. Jaramillo Reason for Consultation:: Elevated Liver Enzymes - History of Present Illness History of Present Illness: patient s/p open cholecystectomy was asked to be seen for elevated liver enzymes. Patient reports history of chronic migraines and admits to taking 5 Tylenol extra strength (500mg) tablets daily, most recent ETOH intake was over 6 months ago. Patient recovering well and reports incision pain otherwise no nausea, no vomiting, no GI discomfort. - History Source History Provided By: Patient, Medical Record Limitations to Obtaining History: No Limitations - Past Surgical History Past Surgical History: Yes: None - Alcohol/Substance Use Hx Alcohol Use: No - Smoking History Smoking history: Never smoked Have you smoked in the past 12 months: No Aproximately how many cigarettes per day: 10 Home Medications - Allergies Allergies/Adverse Reactions: Allergies Allergy/AdvReac Type Severity Reaction Status Date / Time No Known Allergies Allergy Verified 12/29/17 09:28 - Home Medications Home Medications: Ambulatory Orders No Home Medications 0 dose .ROUTE UTDICT 06/27/13 Physical Exam-GI Vital Signs: Vital Signs Temperature 97.7 F 12/31/17 06:30 Pulse Rate 80 12/31/17 11:34 Respiratory Rate 20 12/31/17 11:34 Blood Pressure 129/75 12/31/17 11:34 O2 Sat by Pulse Oximetry (%) 94 L 12/30/17 22:20 Constitutional: Yes: Well Nourished, No Distress, Calm Eyes: Yes: Conjunctiva Clear HENT: Yes: Atraumatic Neck: Yes: Supple Cardiovascular: Yes: Regular Rate and Rhythm Respiratory: Yes: Regular, CTA Bilaterally ...Auscultate: Yes: Normoactive Bowel Sounds ...Palpate: Yes: Tenderness (surgical incision dressing d/c/i). No: Firm/Rigid , Tenderness, Epigastium, Tenderness, Rebound Labs: CBC, BMP 12/31/17 07:00 12/31/17 07:00 INR, PTT INR 0.99 (0.82-1.09) 12/30/17 06:35 Problem List - Problems (1) Elevated liver enzymes Assessment/Plan: medication induced Recommendation: possible discontinue Tylenol Code(s): R74.8 - ABNORMAL LEVELS OF OTHER SERUM ENZYMES
--- NOTE | 2017-12-31 17:17 | PN ---
Progress Note (short form) - Note Progress Note: Anesthesiology Post-op/Pain Service POD#1 s/p [id number] cholecystectomy under GA with post-op ADVENTURE THERAPIST. Pt. states that he feels much better today. He denies n/v. Pain, though present , is well managed; he states that he uses ADVENTURE THERAPIST intermittently. Diet recently advanced to clears. Good use of incentive spirometry though he does experience some pain with this. VSS. 32 y.o. s/p cholecystectomy with stable post-operative course on ADVENTURE THERAPIST for pain management. Continue ADVENTURE THERAPIST for now since diet only recently advanced. Consider conversion to PO pain meds once tolerating more PO intake.
--- NOTE | 2017-12-31 22:55 | PN ---
Progress Note, Physician History of Present Illness: Pt still having pain and drainage in tube - Current Medication List Current Medications: Active Medications Acetaminophen (Ofirmev Injection -) 1,000 mg IVPB Q6H PRN PRN Reason: PAIN LEVEL 1 - 3 Last Admin: 12/31/17 08:35 Dose: 1,000 mg Diphenhydramine HCl (Benadryl Injection -) 12.5 mg IVPUSH ONCE PRN PRN Reason: FOR ITCHING Heparin Sodium (Porcine) (Heparin -) 5,000 unit SQ TID JACKSON Last Admin: 12/31/17 22:07 Dose: 5,000 unit Hydromorphone HCl (Dilaudid Natural Resources Faculty Member -) 6 mg WINDING OPERATOR WINDING OPERATOR JACKSON PRN Reason: Protocol Stop: 01/06/18 20:02 Last Admin: 12/31/17 11:34 Dose: 6 mg Cefazolin Sodium (Ancef 1 Gm Premixed Ivpb -) 1 gm in 50 mls @ 100 mls/hr IVPB Q8H-IV [facility] Last Admin: 12/31/17 18:12 Dose: 100 mls/hr Lactated Ringer's (Lactated Ringers Solution) 1,000 mls @ 125 mls/hr IV ASDIR JACKSON Last Admin: 12/31/17 04:05 Dose: 125 mls/hr Ketorolac Tromethamine (Toradol Injection -) 30 mg IVPUSH Q8H-IV [facility] Stop: 01/02/18 11:14 Last Admin: 12/31/17 18:12 Dose: 30 mg Promethazine HCl (Phenergan Injection -) 12.5 mg IVPB Q6H PRN PRN Reason: NAUSEA AND/OR VOMITING - Objective Vital Signs: Vital Signs Temperature 98.8 F 12/31/17 22:20 Pulse Rate 86 12/31/17 22:20 Respiratory Rate 20 12/31/17 22:20 Blood Pressure 138/69 12/31/17 22:20 O2 Sat by Pulse Oximetry (%) 94 L 12/31/17 21:00 Constitutional: Yes: Well Nourished Neck: Yes: WNL, Supple Cardiovascular: Yes: WNL, Regular Rate and Rhythm Respiratory: Yes: WNL, Regular, CTA Bilaterally Gastrointestinal: Yes: Other ((+) incisional tenderness (+) sangrinous drainage in tube) Labs: CBC, BMP 12/31/17 07:00 12/31/17 07:00 INR, PTT INR 0.99 (0.82-1.09) 12/30/17 06:35 Problem List - Problems (1) Abdominal pain Assessment/Plan: S/P lap choley Drainage tube w/ sangrinous drainage WBC elevated and LFT's elevated Cont IV antibx Monitor WBC/LFT's Code(s): R10.9 - UNSPECIFIED ABDOMINAL PAIN
[2018-01-01] MEDS: LACTATED RINGERS SOLUTION 1,000 ML IV SCH (01:21)
[2018-01-01] MEDS: KETOROLAC TROMETHAMINE 30 MG/1 ML VIAL IVPUSH SCH (01:22)
[2018-01-01] MEDS: HYDROmorphone *PCA* 6MG/30ML DISP.SYRIN PCA SCH (01:23)
[2018-01-01] MEDS: CEFAZOLIN 1 GM/D5W 1 GM/50 ML BAG IVPB SCH (01:24)
[2018-01-01] MEDS: HEPARIN NA (PORCINE) 5,000 UNITS/ML 1ML VIAL SQ SCH ×3 (06:24→22:08)
[2018-01-01 08:07] LABS: BASO % 0.6 % (0-2.0); HEMATOCRIT 37.4 % (35.4-49); LYMPH % 18.5 % (8-40); MCH 29.8 pg (25.7-33.7); MCHC 34.7 g/dl (32.0-35.9); MEAN PLT VOLUME 9.9 fl (7.5-11.1); MONO % 8.2 % (3.8-10.2); NEUT % 71.7 % (42.8-82.8); PLATELET COUNT 217 K/MM3 (134-434); RBC 4.35 M/mm3 (4.00-5.60); RDW 13.2 % (11.9-15.9)
[2018-01-01 08:30] LABS: ALBUMIN 3.3 g/dl (3.4-5.0); ANION GAP 10 (8-16); CALCIUM 8.3 mg/dL (8.5-10.1); CHLORIDE 104 mmol/L (98-107); CO2 27 mmol/L (21-32); GLUCOSE,RANDOM 87 mg/dL (74-106); POTASSIUM 3.8 mmol/L (3.5-5.1); SGOT/AST 77 U/L (15-37); SODIUM 141 mmol/L (136-145)
[2018-01-01 08:36] LABS: ALK PHOS 96 U/L (45-117); BILIRUBIN,DIRECT 0.3 mg/dL (0.0-0.2); BILIRUBIN,TOTAL 0.9 mg/dL (0.2-1.0); BLOOD UREA NITROGEN 12 mg/dL (7-18); CREATININE 0.8 mg/dL (0.7-1.3); SGPT/ALT 197 U/L (12-78); TOT PROT 5.9 g/dl (6.4-8.2)
--- NOTE | 2018-01-01 08:42 | PN ---
Progress Note (short form) - Note Progress Note: ANESTHESIOLOGY POST-OP CHECK 32M S/P open cholecystectomy POD #2. Pain controlled with dilaudid DEMOLITIONIST 8/10 but tolerable. Tolerating clear diet. D/C DEMOLITIONIST if advance diet today. Switch to PO pain meds and continue management as per primary team.
--- NOTE | 2018-01-01 09:01 | PN ---
Progress Note (short form) - Note Progress Note: Attending Surgeon POD #2 s/p lap to open gerber VSS AF; tolerated clear liquids abdomen-soft; incision c/d/i; JEREMY serosanguinous extremities-warm; no calf tenderness neck-rash WBC-wnl;bili; wnl I/O noted IMP: doing well PLAN: Advance diet; OOB; benadryl for rash; PO analgesics; continue drain Ameya Phelps MD FACS
[2018-01-01] MEDS: oxyCODONE HCL 5 MG TABLET PO PRN ×3 (12:19→20:25)
--- NOTE | 2018-01-01 13:16 | PN ---
GI Progress Note Subjective: patients still with abdominal pain, LFTS [place] kaufman trend, poor appetite. J-p drain in place - Objective Vital Signs: Vital Signs Temperature 98.2 F 01/01/18 06:00 Pulse Rate 86 01/01/18 06:00 Respiratory Rate 20 01/01/18 06:00 Blood Pressure 152/79 01/01/18 06:00 O2 Sat by Pulse Oximetry (%) 94 L 12/31/17 21:00 Constitutional: Obese Eyes: Yes: Conjunctiva Clear HENT: Yes: Atraumatic Neck: Yes: Trachea Midline Cardiovascular: Yes: Regular Rate and Rhythm Respiratory: Yes: CTA Bilaterally ...Palpate: Yes: Soft, Tenderness (ruq tenderness). No: Firm/Rigid, Hepatomegaly, Mass, Pulsatile Mass, Splenomegaly Labs: CBC, BMP 01/01/18 06:00 01/01/18 06:00 INR, PTT INR 0.99 (0.82-1.09) 12/30/17 06:35 Problem List - Problems (1) Elevated liver enzymes Assessment/Plan: down kaufman trend etiology multifactorial including previous surgery and medication R> serial abdominal examination repeat Lfts Code(s): R74.8 - ABNORMAL LEVELS OF OTHER SERUM ENZYMES
--- NOTE | 2018-01-01 14:15 | PN ---
Progress Note, Physician History of Present Illness: stable no new issues wbc has normalized patient main complaint is pain - Current Medication List Current Medications: Active Medications Acetaminophen (Ofirmev Injection -) 1,000 mg IVPB Q6H PRN PRN Reason: PAIN LEVEL 1 - 3 Last Admin: 12/31/17 08:35 Dose: 1,000 mg Diphenhydramine HCl (Benadryl Injection -) 12.5 mg IVPUSH ONCE PRN PRN Reason: FOR ITCHING Heparin Sodium (Porcine) (Heparin -) 5,000 unit SQ TID JACKSON Last Admin: 01/01/18 06:24 Dose: 5,000 unit Oxycodone HCl (Roxicodone -) 5 mg PO Q4H PRN PRN Reason: PAIN LEVEL 1-5 Oxycodone HCl (Roxicodone -) 10 mg PO Q4H PRN PRN Reason: PAIN LEVEL 6-10 Last Admin: 01/01/18 12:19 Dose: 10 mg Promethazine HCl (Phenergan Injection -) 12.5 mg IVPB Q6H PRN PRN Reason: NAUSEA AND/OR VOMITING - Objective Vital Signs: Vital Signs Temperature 98.2 F 01/01/18 06:00 Pulse Rate 86 01/01/18 06:00 Respiratory Rate 20 01/01/18 06:00 Blood Pressure 152/79 01/01/18 06:00 O2 Sat by Pulse Oximetry (%) 94 L 12/31/17 21:00 Constitutional: Yes: No Distress, Calm, Obese Cardiovascular: Yes: Regular Rate and Rhythm Respiratory: Yes: Regular, CTA Bilaterally Gastrointestinal: Yes: Soft, Hypoactive Bowel Sounds Musculoskeletal: Yes: WNL Extremities: Yes: WNL Wound/Incision: Yes: Dressing Dry and Intact Neurological: Yes: Alert, Oriented Psychiatric: Yes: Alert, Oriented Labs: CBC, BMP 01/01/18 06:00 01/01/18 06:00 INR, PTT INR 0.99 (0.82-1.09) 12/30/17 06:35 Assessment/Plan Problem List - Problems (1) Abdominal pain Code(s): R10.9 - UNSPECIFIED ABDOMINAL PAIN 2 leukocytosis (3) Elevated liver enzymes Code(s): R74.8 - ABNORMAL LEVELS OF OTHER SERUM ENZYMES plan off of abx wbc has normalized patient doing well will monitor for now without abx enzymes trending down
--- NOTE | 2018-01-01 22:07 | PN ---
Progress Note, Physician History of Present Illness: Pt still having pain and drainage in tube - Current Medication List Current Medications: Active Medications Acetaminophen (Ofirmev Injection -) 1,000 mg IVPB Q6H PRN PRN Reason: PAIN LEVEL 1 - 3 Last Admin: 12/31/17 08:35 Dose: 1,000 mg Diphenhydramine HCl (Benadryl Injection -) 12.5 mg IVPUSH ONCE PRN PRN Reason: FOR ITCHING Heparin Sodium (Porcine) (Heparin -) 5,000 unit SQ TID JACKSON Last Admin: 01/01/18 15:27 Dose: 5,000 unit Oxycodone HCl (Roxicodone -) 5 mg PO Q4H PRN PRN Reason: PAIN LEVEL 1-5 Oxycodone HCl (Roxicodone -) 10 mg PO Q4H PRN PRN Reason: PAIN LEVEL 6-10 Last Admin: 01/01/18 20:25 Dose: 10 mg Promethazine HCl (Phenergan Injection -) 12.5 mg IVPB Q6H PRN PRN Reason: NAUSEA AND/OR VOMITING - Objective Vital Signs: Vital Signs Temperature 98.1 F 01/01/18 17:23 Pulse Rate 81 01/01/18 17:23 Respiratory Rate 20 01/01/18 17:23 Blood Pressure 151/91 01/01/18 17:23 O2 Sat by Pulse Oximetry (%) 94 L 01/01/18 09:00 Constitutional: Yes: Well Nourished Neck: Yes: WNL, Supple Cardiovascular: Yes: WNL, Regular Rate and Rhythm Respiratory: Yes: WNL, Regular, CTA Bilaterally Gastrointestinal: Yes: Normal Bowel Sounds, Soft, Other ((+) incisional tenderness (+) drainage in drainage tube) Labs: CBC, BMP 01/01/18 06:00 01/01/18 06:00 INR, PTT INR 0.99 (0.82-1.09) 12/30/17 06:35 Problem List - Problems (1) Abdominal pain Assessment/Plan: S/P lap choley Drainage tube w/ sangrinous drainage Pt off antibxs Cont to monitor LFT's/WBC Code(s): R10.9 - UNSPECIFIED ABDOMINAL PAIN
[2018-01-02] MEDS: oxyCODONE HCL 5 MG TABLET PO PRN ×6 (00:23→21:22)
[2018-01-02] MEDS: HEPARIN NA (PORCINE) 5,000 UNITS/ML 1ML VIAL SQ SCH ×3 (06:55→21:20)
[2018-01-02 08:27] LABS: BASO % 0.8 % (0-2.0); EOS % 2.2 % (0-4.5); HEMATOCRIT 40.4 % (35.4-49); HEMOGLOBIN 13.9 GM/dL (11.7-16.9); LYMPH % 26.5 % (8-40); MCH 29.6 pg (25.7-33.7); MCHC 34.5 g/dl (32.0-35.9); MEAN CELL VOLUME 85.8 fl (80-96); MEAN PLT VOLUME 9.7 fl (7.5-11.1); MONO % 10.6 % (3.8-10.2); NEUT % 59.9 % (42.8-82.8); PLATELET COUNT 229 K/MM3 (134-434); RDW 12.9 % (11.9-15.9); WHITE BLOOD COUNT 6.3 K/mm3 (4.0-10.0)
[2018-01-02 08:41] LABS: CHLORIDE 102 mmol/L (98-107); POTASSIUM 4.1 mmol/L (3.5-5.1); SODIUM 138 mmol/L (136-145)
[2018-01-02 08:58] LABS: ALBUMIN 3.2 g/dl (3.4-5.0); ALK PHOS 199 U/L (45-117); ANION GAP 8 (8-16); BILIRUBIN,TOTAL 2.6 mg/dL (0.2-1.0); BLOOD UREA NITROGEN 9 mg/dL (7-18); CALCIUM 8.7 mg/dL (8.5-10.1); CO2 28 mmol/L (21-32); CREATININE 0.7 mg/dL (0.7-1.3); GLUCOSE,RANDOM 88 mg/dL (74-106); SGOT/AST 236 U/L (15-37); SGPT/ALT 345 U/L (12-78); TOT PROT 6.2 g/dl (6.4-8.2)
--- NOTE | 2018-01-02 11:16 | PATH ---
Surgical Pathology Report Patient Name: BRAD DEVI Med. Rec. #: [id number] /Age/Gender: 1985 (Age: 32) / M Account: [id number] Location: [facility] MED/SURG Taken: 12/30/2017 Received: 12/31/2017 Reported: 01/02/2018 Physicians: MD Mily Paul M.D. Specimen(s) Received GALLBLADDER AND STONES Clinical History Acute calculus cholecystitis Final Diagnosis GALLBLADDER, CHOLECYSTECTOMY: CHRONIC CHOLECYSTITIS AND CHOLELITHIASIS. Electronically Signed Will An M.D. Gross Description Received in formalin labelled "gallbladder with gallstones" is a 6 x 2.3 x 1.4 cm gallbladder which has been previously opened. The gallbladder has a shiny purple serosa, and up to 0.3 cm thick wall, and velvety mucosa. A pericystic lymph node is not identified. Also present within the specimen container are 2 calculi one of which measures 3.2 cm in greatest dimension the other which measures 0.5 cm in greatest dimension. 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 [facility]/12/31/2017 [facility]/12/31/2017
--- NOTE | 2018-01-02 11:30 | PN ---
Progress Note (short form) - Note Progress Note: Attending Surgeon POD #3 No c/o; tolerating diet VSS AF abdo-soft; incision c/d/i; JEREMY non bilious LFT's and bili elevated today IMP: doing well PLAN: ? retained stone/pased stone; will trend LFT's ;drain to remain Ameya Phelps MD FACS
--- NOTE | 2018-01-02 12:37 | PN ---
Progress Note, Physician History of Present Illness: stable no complaints pain main issues lft increasing - Current Medication List Current Medications: Active Medications Acetaminophen (Ofirmev Injection -) 1,000 mg IVPB Q6H PRN PRN Reason: PAIN LEVEL 1 - 3 Last Admin: 12/31/17 08:35 Dose: 1,000 mg Diphenhydramine HCl (Benadryl Injection -) 12.5 mg IVPUSH ONCE PRN PRN Reason: FOR ITCHING Heparin Sodium (Porcine) (Heparin -) 5,000 unit SQ TID JACKSON Last Admin: 01/02/18 06:55 Dose: 5,000 unit Oxycodone HCl (Roxicodone -) 5 mg PO Q4H PRN PRN Reason: PAIN LEVEL 1-5 Last Admin: 01/02/18 04:32 Dose: 5 mg Oxycodone HCl (Roxicodone -) 10 mg PO Q4H PRN PRN Reason: PAIN LEVEL 6-10 Last Admin: 01/02/18 08:38 Dose: 10 mg Promethazine HCl (Phenergan Injection -) 12.5 mg IVPB Q6H PRN PRN Reason: NAUSEA AND/OR VOMITING - Objective Vital Signs: Vital Signs Temperature 98.9 F 01/02/18 06:00 Pulse Rate 61 01/02/18 06:00 Respiratory Rate 20 01/02/18 06:00 Blood Pressure 148/78 01/02/18 06:00 O2 Sat by Pulse Oximetry (%) 94 L 01/01/18 21:00 Constitutional: Yes: Calm, Mild Distress Cardiovascular: Yes: Regular Rate and Rhythm Respiratory: Yes: Regular, Poor Air Entry (bases) Gastrointestinal: Yes: Hypoactive Bowel Sounds Musculoskeletal: Yes: WNL Extremities: Yes: WNL Wound/Incision: Yes: Dressing Dry and Intact Neurological: Yes: Alert, Oriented Psychiatric: Yes: Alert, Oriented Labs: CBC, BMP 01/02/18 07:30 01/02/18 06:30 INR, PTT INR 0.99 (0.82-1.09) 12/30/17 06:35 Assessment/Plan Problem List - Problems (1) Abdominal pain Code(s): R10.9 - UNSPECIFIED ABDOMINAL PAIN 2 leukocytosis (3) Elevated liver enzymes Code(s): R74.8 - ABNORMAL LEVELS OF OTHER SERUM ENZYMES plan continue monitoring off of abx continue monitoring lft wound care rest as per surgery
--- NOTE | 2018-01-02 13:59 | PN ---
GI Progress Note Subjective: patient still with abdominal pain, lfts more elevated - Objective Vital Signs: Vital Signs Temperature 98.9 F 01/02/18 06:00 Pulse Rate 61 01/02/18 06:00 Respiratory Rate 20 01/02/18 06:00 Blood Pressure 148/78 01/02/18 06:00 O2 Sat by Pulse Oximetry (%) 94 L 01/01/18 21:00 Constitutional: Well Nourished Eyes: Yes: Conjunctiva Clear HENT: Yes: Atraumatic Neck: Yes: Supple Cardiovascular: Yes: Regular Rate and Rhythm Respiratory: Yes: CTA Bilaterally ...Palpate: Yes: Soft, Tenderness (--ruq tenderness) Labs: CBC, BMP 01/02/18 07:30 01/02/18 06:30 INR, PTT INR 0.99 (0.82-1.09) 12/30/17 06:35 Problem List - Problems (1) Elevated liver enzymes Assessment/Plan: R>worsening lfts could not r/o retained stone vs leak, biloma R> HIDA scan ' abdominal ultrasound Code(s): R74.8 - ABNORMAL LEVELS OF OTHER SERUM ENZYMES
--- NOTE | 2018-01-03 00:56 | PN ---
Progress Note, Physician - Current Medication List Current Medications: Active Medications Acetaminophen (Ofirmev Injection -) 1,000 mg IVPB Q6H PRN PRN Reason: PAIN LEVEL 1 - 3 Last Admin: 12/31/17 08:35 Dose: 1,000 mg Diphenhydramine HCl (Benadryl Injection -) 12.5 mg IVPUSH ONCE PRN PRN Reason: FOR ITCHING Heparin Sodium (Porcine) (Heparin -) 5,000 unit SQ TID JACKSON Last Admin: 01/02/18 21:20 Dose: 5,000 unit Oxycodone HCl (Roxicodone -) 5 mg PO Q4H PRN PRN Reason: PAIN LEVEL 1-5 Last Admin: 01/02/18 04:32 Dose: 5 mg Oxycodone HCl (Roxicodone -) 10 mg PO Q4H PRN PRN Reason: PAIN LEVEL 6-10 Last Admin: 01/02/18 21:22 Dose: 10 mg Promethazine HCl (Phenergan Injection -) 12.5 mg IVPB Q6H PRN PRN Reason: NAUSEA AND/OR VOMITING - Objective Vital Signs: Vital Signs Temperature 98.9 F 01/02/18 20:57 Pulse Rate 82 01/02/18 19:44 Respiratory Rate 20 01/02/18 21:00 Blood Pressure 165/95 01/02/18 20:57 O2 Sat by Pulse Oximetry (%) 95 01/02/18 21:00 Labs: CBC, BMP 01/02/18 07:30 01/02/18 06:30 INR, PTT INR 0.99 (0.82-1.09) 12/30/17 06:35 Problem List - Problems (1) Abdominal pain Code(s): R10.9 - UNSPECIFIED ABDOMINAL PAIN
[2018-01-03] MEDS: oxyCODONE HCL 5 MG TABLET PO PRN ×6 (01:16→21:23)
[2018-01-03] MEDS: HEPARIN NA (PORCINE) 5,000 UNITS/ML 1ML VIAL SQ SCH ×3 (05:38→21:22)
[2018-01-03] MEDS: POLYETHYLENE GLYCOL 3350 119 GM BTL PO SCH (10:26)
--- NOTE | 2018-01-03 13:26 | PN ---
Progress Note, Physician History of Present Illness: Pt seen and examined, events noted. Pt states he has abd pain, in RUQ. No nausea /vomiting but intermittent chills last night. Tmax 99.3F. No other specific complaints. - Current Medication List Current Medications: Active Medications Acetaminophen (Ofirmev Injection -) 1,000 mg IVPB Q6H PRN PRN Reason: PAIN LEVEL 1 - 3 Last Admin: 12/31/17 08:35 Dose: 1,000 mg Diphenhydramine HCl (Benadryl Injection -) 12.5 mg IVPUSH ONCE PRN PRN Reason: FOR ITCHING Heparin Sodium (Porcine) (Heparin -) 5,000 unit SQ TID JACKSON Last Admin: 01/03/18 05:38 Dose: 5,000 unit Oxycodone HCl (Roxicodone -) 5 mg PO Q4H PRN PRN Reason: PAIN LEVEL 1-5 Last Admin: 01/02/18 04:32 Dose: 5 mg Oxycodone HCl (Roxicodone -) 10 mg PO Q4H PRN PRN Reason: PAIN LEVEL 6-10 Last Admin: 01/03/18 12:59 Dose: 10 mg Polyethylene Glycol (Miralax (For Daily Use) -) 17 gm PO DAILY [facility] Last Admin: 01/03/18 10:26 Dose: 17 gm Promethazine HCl (Phenergan Injection -) 12.5 mg IVPB Q6H PRN PRN Reason: NAUSEA AND/OR VOMITING - Objective Vital Signs: Vital Signs Temperature 98.0 F 01/03/18 06:00 Pulse Rate 69 01/03/18 06:00 Respiratory Rate 20 01/03/18 06:00 Blood Pressure 139/76 01/03/18 06:00 O2 Sat by Pulse Oximetry (%) 95 01/02/18 21:00 Constitutional: Yes: No Distress Neck: Yes: Supple Cardiovascular: Yes: Regular Rate and Rhythm Respiratory: Yes: Regular Gastrointestinal: Yes: Normal Bowel Sounds, Soft, Tenderness (RUQ , drain with sanguinous fluid, dressing intact) Genitourinary: Yes: WNL Musculoskeletal: Yes: WNL Wound/Incision: Yes: Dressing Dry and Intact Neurological: Yes: Alert Labs: CBC, BMP 01/02/18 07:30 01/02/18 06:30 INR, PTT INR 0.99 (0.82-1.09) 12/30/17 06:35 CMP Sodium 138 mmol/L (136-145) 01/02/18 06:30 Potassium 4.1 mmol/L (3.5-5.1) 01/02/18 06:30 Chloride 102 mmol/L (98-107) 01/02/18 06:30 Carbon Dioxide 28 mmol/L (21-32) 01/02/18 06:30 Anion Gap 8 (8-16) 01/02/18 06:30 BUN 9 mg/dL (7-18) D 01/02/18 06:30 Creatinine 0.7 mg/dL (0.7-1.3) 01/02/18 06:30 Creat Clearance w eGFR > 60 (>60) 01/02/18 06:30 Random Glucose 88 mg/dL (74-106) 01/02/18 06:30 Calcium 8.7 mg/dL (8.5-10.1) 01/02/18 06:30 Total Bilirubin 2.6 mg/dL (0.2-1.0) H D 01/02/18 06:30 Direct Bilirubin 0.3 mg/dL (0.0-0.2) H D 01/01/18 06:00 AST 236 U/L (15-37) H D 01/02/18 06:30 ALT 345 U/L (12-78) H D 01/02/18 06:30 Alkaline Phosphatase 199 U/L (45-117) H D 01/02/18 06:30 Troponin I < 0.02 ng/ml (0.00-0.05) 12/29/17 11:32 Total Protein 6.2 g/dl (6.4-8.2) L 01/02/18 06:30 Albumin 3.2 g/dl (3.4-5.0) L 01/02/18 06:30 Lipase 166 U/L (73-393) 12/29/17 11:32 Problem List - Problems (1) Abdominal pain Code(s): R10.9 - UNSPECIFIED ABDOMINAL PAIN (2) Acute calculous cholecystitis Code(s): K80.00 - CALCULUS OF GALLBLADDER W ACUTE CHOLECYST W/O OBSTRUCTION (3) Elevated liver enzymes Code(s): R74.8 - ABNORMAL LEVELS OF OTHER SERUM ENZYMES (4) Fever Code(s): R50.9 - FEVER, UNSPECIFIED Qualifiers: Fever type: unspecified Qualified Code(s): R50.9 - Fever, unspecified Assessment/Plan 32 y.o. male s/p open cholecystectomy POD#3 with abd pain and increasing LFT trend -- repeat cbc, cmp -- monitor vitals pt currently off antibiotics, will decide if need to restart currently stable
--- NOTE | 2018-01-03 14:24 | PN ---
Progress Note (short form) - Note Progress Note: Attending Surgeon POD #4 No c/o Tolerating diet and moving bowels VSS AF abdo-soft; incision c/d/i; morgan in place; JEREMY serosanguinous WBC-wnl; LFT's not done HIDA-no leak; no biliary dilatation IMP: doing well PLAN: May be d/c'ed from my point of view w/ the drain and office f/u on Friday or next week; will f/u of LFT's as an outpatient. Ameya Phelps MD FACS
[2018-01-03 14:36] LABS: BASO % 0.5 % (0-2.0); EOS % 1.8 % (0-4.5); HEMATOCRIT 42.9 % (35.4-49); HEMOGLOBIN 14.6 GM/dL (11.7-16.9); LYMPH % 14.5 % (8-40); MCH 29.4 pg (25.7-33.7); MEAN CELL VOLUME 86.3 fl (80-96); MEAN PLT VOLUME 9.4 fl (7.5-11.1); MONO % 8.4 % (3.8-10.2); NEUT % 74.8 % (42.8-82.8); PLATELET COUNT 280 K/MM3 (134-434); RBC 4.97 M/mm3 (4.00-5.60); RDW 13.4 % (11.9-15.9); WHITE BLOOD COUNT 7.9 K/mm3 (4.0-10.0)
[2018-01-03 14:59] LABS: ALBUMIN 3.4 g/dl (3.4-5.0); ANION GAP 5 (8-16); BILIRUBIN,TOTAL 0.9 mg/dL (0.2-1.0); BLOOD UREA NITROGEN 10 mg/dL (7-18); CALCIUM 9.2 mg/dL (8.5-10.1); CHLORIDE 103 mmol/L (98-107); CO2 29 mmol/L (21-32); CREATININE 0.8 mg/dL (0.7-1.3); GLUCOSE,RANDOM 86 mg/dL (74-106); POTASSIUM 4.2 mmol/L (3.5-5.1); SGOT/AST 132 U/L (15-37); SGPT/ALT 369 U/L (12-78); SODIUM 137 mmol/L (136-145); TOT PROT 6.7 g/dl (6.4-8.2)
[2018-01-03 15:00] LABS: ALK PHOS 219 U/L (45-117)
--- NOTE | 2018-01-03 19:51 | PN ---
GI Progress Note Subjective: abdominal pain , markedly improved, LFTS downward trend - Objective Vital Signs: Vital Signs Temperature 98.5 F 01/03/18 17:39 Pulse Rate 104 H 01/03/18 17:39 Respiratory Rate 18 01/03/18 17:39 Blood Pressure 144/86 01/03/18 17:39 O2 Sat by Pulse Oximetry (%) 95 01/02/18 21:00 Constitutional: Well Nourished Eyes: Yes: Conjunctiva Clear, Occular Prosthesis Neck: Yes: Supple Cardiovascular: Yes: Regular Rate and Rhythm Respiratory: Yes: CTA Bilaterally ...Palpate: Yes: Soft, Tenderness (mild ruq tenderness). No: Mass, Pulsatile Mass Labs: CBC, BMP 01/03/18 13:50 01/03/18 13:50 INR, PTT INR 0.99 (0.82-1.09) 12/30/17 06:35 Hepatic Panel Total Bilirubin 0.9 mg/dL (0.2-1.0) D 01/03/18 13:50 Direct Bilirubin 0.3 mg/dL (0.0-0.2) H D 01/01/18 06:00 AST 132 U/L (15-37) H D 01/03/18 13:50 ALT 369 U/L (12-78) H 01/03/18 13:50 Alkaline Phosphatase 219 U/L (45-117) H 01/03/18 13:50 Albumin 3.4 g/dl (3.4-5.0) 01/03/18 13:50 Problem List - Problems (1) Elevated liver enzymes Assessment/Plan: downward trend R>HIDA scan negative for leak, will start Actigall made aware to follow -up Code(s): R74.8 - ABNORMAL LEVELS OF OTHER SERUM ENZYMES
--- NOTE | 2018-01-03 20:03 | PN ---
Progress Note, Physician - Current Medication List Current Medications: Active Medications Acetaminophen (Ofirmev Injection -) 1,000 mg IVPB Q6H PRN PRN Reason: PAIN LEVEL 1 - 3 Last Admin: 12/31/17 08:35 Dose: 1,000 mg Diphenhydramine HCl (Benadryl Injection -) 12.5 mg IVPUSH ONCE PRN PRN Reason: FOR ITCHING Heparin Sodium (Porcine) (Heparin -) 5,000 unit SQ TID [facility] Last Admin: 01/03/18 14:47 Dose: Not Given Oxycodone HCl (Roxicodone -) 5 mg PO Q4H PRN PRN Reason: PAIN LEVEL 1-5 Last Admin: 01/02/18 04:32 Dose: 5 mg Oxycodone HCl (Roxicodone -) 10 mg PO Q4H PRN PRN Reason: PAIN LEVEL 6-10 Last Admin: 01/03/18 17:23 Dose: 10 mg Polyethylene Glycol (Miralax (For Daily Use) -) 17 gm PO DAILY [facility] Last Admin: 01/03/18 10:26 Dose: 17 gm Promethazine HCl (Phenergan Injection -) 12.5 mg IVPB Q6H PRN PRN Reason: NAUSEA AND/OR VOMITING Ursodiol (Actigal -) 300 mg PO BID [facility] - Objective Vital Signs: Vital Signs Temperature 98.5 F 01/03/18 17:39 Pulse Rate 104 H 01/03/18 17:39 Respiratory Rate 18 01/03/18 17:39 Blood Pressure 144/86 01/03/18 17:39 O2 Sat by Pulse Oximetry (%) 95 01/02/18 21:00 Labs: CBC, BMP 01/03/18 13:50 01/03/18 13:50 INR, PTT INR 0.99 (0.82-1.09) 12/30/17 06:35 Problem List - Problems (1) Abdominal pain Code(s): R10.9 - UNSPECIFIED ABDOMINAL PAIN
[2018-01-03] MEDS: URSODIOL 300 MG CAPSULE PO SCH (21:22)
[2018-01-04] MEDS: DOCUSATE SODIUM 100 MG CAPSULE (FP) PO SCH ×2 (05:08→21:43)
[2018-01-04] MEDS: HEPARIN NA (PORCINE) 5,000 UNITS/ML 1ML VIAL SQ SCH ×3 (05:08→21:44)
[2018-01-04 08:49] LABS: BASO % 0.6 % (0-2.0); EOS % 1.6 % (0-4.5); HEMATOCRIT 47.1 % (35.4-49); HEMOGLOBIN 16.1 GM/dL (11.7-16.9); LYMPH % 18.2 % (8-40); MCH 29.5 pg (25.7-33.7); MCHC 34.2 g/dl (32.0-35.9); MEAN CELL VOLUME 86.3 fl (80-96); MEAN PLT VOLUME 9.3 fl (7.5-11.1); MONO % 7.9 % (3.8-10.2); NEUT % 71.7 % (42.8-82.8); PLATELET COUNT 349 K/MM3 (134-434); RBC 5.46 M/mm3 (4.00-5.60); RDW 13.1 % (11.9-15.9); WHITE BLOOD COUNT 9.4 K/mm3 (4.0-10.0)
[2018-01-04 09:46] LABS: ANION GAP 8 (8-16); BLOOD UREA NITROGEN 11 mg/dL (7-18); CHLORIDE 101 mmol/L (98-107); CO2 27 mmol/L (21-32); CREATININE 0.9 mg/dL (0.7-1.3); GLUCOSE,RANDOM 112 mg/dL (74-106); POTASSIUM 4.6 mmol/L (3.5-5.1); SODIUM 136 mmol/L (136-145)
[2018-01-04] MEDS: POLYETHYLENE GLYCOL 3350 119 GM BTL PO SCH (09:57)
[2018-01-04] MEDS: URSODIOL 300 MG CAPSULE PO SCH ×2 (09:57→21:43)
[2018-01-04] MEDS: ACETAMINOPHEN 1000 MG/100 ML VIAL (NON FORMULARY) IVPB PRN (13:49)
[2018-01-04] MEDS: oxyCODONE HCL 5 MG TABLET PO PRN ×2 (14:03→21:41)
--- NOTE | 2018-01-04 16:20 | PN ---
Progress Note, Physician History of Present Illness: Pt states he feels much better today. Afebrile, without abd pain. No new complaints. - Current Medication List Current Medications: Active Medications Acetaminophen (Ofirmev Injection -) 1,000 mg IVPB Q6H PRN PRN Reason: PAIN LEVEL 1 - 3 Last Admin: 12/31/17 08:35 Dose: 1,000 mg Diphenhydramine HCl (Benadryl Injection -) 12.5 mg IVPUSH ONCE PRN PRN Reason: FOR ITCHING Docusate Sodium (Colace -) 300 mg PO HS [facility] Last Admin: 01/04/18 05:08 Dose: 300 mg Heparin Sodium (Porcine) (Heparin -) 5,000 unit SQ TID [facility] Last Admin: 01/04/18 13:49 Dose: 5,000 unit Oxycodone HCl (Roxicodone -) 5 mg PO Q4H PRN PRN Reason: PAIN 1-5 Last Admin: 01/04/18 14:03 Dose: 5 mg Polyethylene Glycol (Miralax (For Daily Use) -) 17 gm PO DAILY [facility] Last Admin: 01/04/18 09:57 Dose: 17 gm Promethazine HCl (Phenergan Injection -) 12.5 mg IVPB Q6H PRN PRN Reason: NAUSEA AND/OR VOMITING Ursodiol (Actigal -) 300 mg PO BID [facility] Last Admin: 01/04/18 09:57 Dose: 300 mg - Objective Vital Signs: Vital Signs Temperature 97.8 F 01/04/18 15:32 Pulse Rate 78 01/04/18 15:32 Respiratory Rate 20 01/04/18 15:32 Blood Pressure 148/78 01/04/18 15:32 O2 Sat by Pulse Oximetry (%) 95 01/04/18 09:00 Constitutional: Yes: No Distress, Calm Cardiovascular: Yes: Regular Rate and Rhythm Respiratory: Yes: Regular Gastrointestinal: Yes: Normal Bowel Sounds, Soft, Other (RUQ drain with serosanguinous fluid) Extremities: Yes: WNL Wound/Incision: Yes: Dressing Dry and Intact Neurological: Yes: Alert, Oriented Labs: CBC, BMP 01/04/18 08:37 01/04/18 09:30 INR, PTT INR 0.99 (0.82-1.09) 12/30/17 06:35 CMP Sodium 136 mmol/L (136-145) 01/04/18 09:30 Potassium 4.6 mmol/L (3.5-5.1) 01/04/18 09:30 Chloride 101 mmol/L (98-107) 01/04/18 09:30 Carbon Dioxide 27 mmol/L (21-32) 01/04/18 09:30 Anion Gap 8 (8-16) 01/04/18 09:30 BUN 11 mg/dL (7-18) 01/04/18 09:30 Creatinine 0.9 mg/dL (0.7-1.3) 01/04/18 09:30 Creat Clearance w eGFR > 60 (>60) 01/03/18 13:50 Random Glucose 112 mg/dL (74-106) H D 01/04/18 09:30 Calcium 10.0 mg/dL (8.5-10.1) 01/04/18 09:30 Total Bilirubin 0.9 mg/dL (0.2-1.0) D 01/03/18 13:50 Direct Bilirubin 0.3 mg/dL (0.0-0.2) H D 01/01/18 06:00 AST 132 U/L (15-37) H D 01/03/18 13:50 ALT 369 U/L (12-78) H 01/03/18 13:50 Alkaline Phosphatase 219 U/L (45-117) H 01/03/18 13:50 Troponin I < 0.02 ng/ml (0.00-0.05) 12/29/17 11:32 Total Protein 6.7 g/dl (6.4-8.2) 01/03/18 13:50 Albumin 3.4 g/dl (3.4-5.0) 01/03/18 13:50 Lipase 166 U/L (73-393) 12/29/17 11:32 Problem List - Problems (1) Abdominal pain Code(s): R10.9 - UNSPECIFIED ABDOMINAL PAIN (2) Acute calculous cholecystitis Code(s): K80.00 - CALCULUS OF GALLBLADDER W ACUTE CHOLECYST W/O OBSTRUCTION (3) Elevated liver enzymes Code(s): R74.8 - ABNORMAL LEVELS OF OTHER SERUM ENZYMES (4) Fever Code(s): R50.9 - FEVER, UNSPECIFIED Qualifiers: Fever type: unspecified Qualified Code(s): R50.9 - Fever, unspecified Assessment/Plan 32 y.o. male s/p open cholecystectomy POD#3 with resolving abd pain, elevated LFTs -- US/HIDA without evidence of biliary leak/biliary dilatation -- pt feeling better today, monitor LFT trend pt currently off antibiotics, stable
[2018-01-04] MEDS ORDERED: oxyCODONE HCL 5 MG TABLET PO PRN (23:28)
--- NOTE | 2018-01-04 23:28 | PN ---
Progress Note, Physician History of Present Illness: Pt still having pain and drainage in tube - Current Medication List Current Medications: Active Medications Acetaminophen (Ofirmev Injection -) 1,000 mg IVPB Q6H PRN PRN Reason: PAIN LEVEL 1 - 3 Last Admin: 12/31/17 08:35 Dose: 1,000 mg Diphenhydramine HCl (Benadryl Injection -) 12.5 mg IVPUSH ONCE PRN PRN Reason: FOR ITCHING Docusate Sodium (Colace -) 300 mg PO HS [facility] Last Admin: 01/04/18 21:43 Dose: 300 mg Heparin Sodium (Porcine) (Heparin -) 5,000 unit SQ TID [facility] Last Admin: 01/04/18 21:44 Dose: 5,000 unit Oxycodone HCl (Roxicodone -) 5 mg PO Q4H PRN PRN Reason: PAIN 1-5 Last Admin: 01/04/18 21:41 Dose: 5 mg Polyethylene Glycol (Miralax (For Daily Use) -) 17 gm PO DAILY [facility] Last Admin: 01/04/18 09:57 Dose: 17 gm Promethazine HCl (Phenergan Injection -) 12.5 mg IVPB Q6H PRN PRN Reason: NAUSEA AND/OR VOMITING Ursodiol (Actigal -) 300 mg PO BID [facility] Last Admin: 01/04/18 21:43 Dose: 300 mg - Objective Vital Signs: Vital Signs Temperature 98.0 F 01/04/18 17:10 Pulse Rate 95 H 01/04/18 17:10 Respiratory Rate 18 01/04/18 17:10 Blood Pressure 117/76 01/04/18 17:10 O2 Sat by Pulse Oximetry (%) 95 01/04/18 09:00 Neck: Yes: WNL, Supple Cardiovascular: Yes: WNL, Regular Rate and Rhythm Respiratory: Yes: WNL, Regular, CTA Bilaterally Gastrointestinal: Yes: WNL, Normal Bowel Sounds, Soft, Other (J-p drainage tube RUQ Minimal incisional tenderness) Labs: CBC, BMP 01/04/18 08:37 01/04/18 09:30 INR, PTT INR 0.99 (0.82-1.09) 12/30/17 06:35 Problem List - Problems (1) Abdominal pain Assessment/Plan: S/P lap choley Drainage tube w/ sangrinous drainage Pt off antibxs Spoke to length about probable dc w/ drainage tube However due to elevated LFT's will await LFT's in am to determine about dc If LFT's are downtrending then will dc home HIDA scan was negative for any leaks Code(s): R10.9 - UNSPECIFIED ABDOMINAL PAIN
[2018-01-05] MEDS: HEPARIN NA (PORCINE) 5,000 UNITS/ML 1ML VIAL SQ SCH ×2 (05:53→13:36)
[2018-01-05 07:58] LABS: BASO % 0.9 % (0-2.0); EOS % 1.6 % (0-4.5); HEMATOCRIT 44.8 % (35.4-49); HEMOGLOBIN 15.3 GM/dL (11.7-16.9); LYMPH % 23.4 % (8-40); MCH 29.5 pg (25.7-33.7); MCHC 34.1 g/dl (32.0-35.9); MEAN CELL VOLUME 86.6 fl (80-96); MEAN PLT VOLUME 9.4 fl (7.5-11.1); MONO % 7.2 % (3.8-10.2); NEUT % 66.9 % (42.8-82.8); PLATELET COUNT 328 K/MM3 (134-434); RBC 5.18 M/mm3 (4.00-5.60); RDW 13.5 % (11.9-15.9); WHITE BLOOD COUNT 9.1 K/mm3 (4.0-10.0)
[2018-01-05 09:49] LABS: ALBUMIN 3.6 g/dl (3.4-5.0); ANION GAP 11 (8-16); BLOOD UREA NITROGEN 12 mg/dL (7-18); CALCIUM 9.1 mg/dL (8.5-10.1); CHLORIDE 103 mmol/L (98-107); CO2 25 mmol/L (21-32); CREATININE 0.8 mg/dL (0.7-1.3); GLUCOSE,RANDOM 112 mg/dL (74-106); SGOT/AST 45 U/L (15-37); SGPT/ALT 262 U/L (12-78); SODIUM 139 mmol/L (136-145)
[2018-01-05 09:51] LABS: ALK PHOS 200 U/L (45-117); BILIRUBIN,TOTAL 0.4 mg/dL (0.2-1.0); TOT PROT 7.1 g/dl (6.4-8.2)
--- NOTE | 2018-01-05 10:22 | PN ---
Progress Note (short form) - Note Progress Note: Attending Surgeon POD #6 No c/o; tolerating diet VSS AF abdo-soft; incision c/d/i; JEREMY serous bili wnl; LFT's decreasing; WBC-wnl IMP: doing well PLAN: Drain removed; stable for d/c home to office f/u. Ameya Phelps MD FACS
--- NOTE | 2018-01-05 10:57 | OP ---
DATE OF OPERATION: 12/31/2017 PREOPERATIVE DIAGNOSIS: Acute cholecystitis and cholelithiasis. POSTOPERATIVE DIAGNOSIS: Acute cholecystitis and cholelithiasis. PROCEDURE: Laparoscopic converted to open cholecystectomy with attempted intraoperative cholangiogram. SURGEON: Ameya Phelps MD RIB CLOTH KNITTER: An Morrow PA-C and Bárbara Peace PA-C ANESTHESIA: General. OPERATIVE FINDINGS: There was cholelithiasis and acute cholecystitis. The rest of the findings were unremarkable. DESCRIPTION OF PROCEDURE: The patient was placed on the operating room in supine position, and after the induction of general anesthesia, the patient's abdomen was prepped with ChloraPrep and draped in a sterile fashion. A time-out was taken and pneumoperitoneum established above the umbilicus using a Veress needle to an intra-abdominal pressure of 15 mmHg. Additional 5-mm right lateral ports were placed, and a 12-mm subxiphoid port was placed as well. The previously noted findings were observed. Adherent omentum to the fundus of the gallbladder was taken down using electrocautery and blunt dissection at which time a large stone was found to be impacted in the neck of the gallbladder. Lateral traction was attempted in this area, and dissection continued to identify the triangle of Calot. Because of the intense inflammation and impaction of the stone in the distal gallbladder and partial erosion of the stone through the neck of the gallbladder, decision was made to convert to an open procedure as the anatomy in the triangle of Calot could not be adequately defined and an attempt at a cholangiogram could not be done because of the impaction of the stone in the neck of the gallbladder. At this point, all ports were removed and the pneumoperitoneum evacuated and then conversion to an open procedure was carried out by entering the peritoneal cavity through a right upper quadrant incision through skin and subcutaneous tissue, the anterior sheath, rectus muscle, posterior sheath, and peritoneum. The gallbladder was then placed on traction and dissection begun from the dome of the gallbladder down using electrocautery. Once down to the area where the stone was impacted, the cystic duct opening was identified from within the gallbladder after the impacted stone was removed. At this point , an attempted intraoperative cholangiography was carried out through the cystic duct , and a definitive seal could not be obtained in this manner doing the cholangiogram. The gallbladder was then amputated leaving a small cuff of gallbladder on the proximal cystic duct and the gallbladder and stone sent for pathological examination. The duct was suture ligated with 3-0 Prolene suture and clipped twice with large hemoclips. Copious irrigation was carried out and hemostasis checked for and noted to be good. Then the 10-mm Brent-Mccoy drain was placed through one of the 5- mm port sites into the right hepatorenal fossa. The drain was secured to the skin with 2-0 silk suture. Again, hemostasis was verified and then the peritoneal cavity was closed with continuous 0 loop Maxon to the peritoneum and posterior sheath and continuous looped 0 Maxon for the anterior sheath. The subcutaneous tissue was irrigated and the deep dermis reapproximated with interrupted 3-0 Vicryl and the skin edges with surgical morgan. The drain was connected to bulb self-suction, and the remainder of the port sites were closed with surgical morgan as well. Dry, sterile dressings were placed and the procedure terminated at this point and the patient aroused from general anesthesia and transferred to the post anesthesia care unit in stable condition awake and alert. An abdominal x-ray taken after the procedure showed no evidence of retained foreign bodies, which is standard at this institution after conversion from laparoscopic to an open case. ESTIMATED BLOOD LOSS: 150 mL. REPLACEMENT: Crystalloid. DRAINS: One 10-mm Brent-Mccoy. I, Ameya Phelps, was physically present in the operating room from the time the patient was placed on the operating room table until he was transferred to the post anesthesia care unit in [employer]. MD SHIMA Patterson/[id number] MTDD
[2018-01-05] MEDS: POLYETHYLENE GLYCOL 3350 119 GM BTL PO SCH (11:00)
[2018-01-05] MEDS: URSODIOL 300 MG CAPSULE PO SCH (11:02)
--- NOTE | 2018-01-05 12:33 | DS ---
Physical Exam: SUBJECTIVE: Patient seen and examined at the bedside. OBJECTIVE: drainage tubes removed, sitting up in no acute distress, + bowel sounds having BMs, denies pain: does not want oxycodone as it gives him headaches. 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 Reese. Avoid Tylenol until LFTs are checked with PCP Vital Signs Period Temp Pulse Resp BP Sys/Farmer Pulse Ox Last 24 Hr 97.5 F-98.0 F 66-95 18-20 117-148/70-78 95 PHYSICAL EXAM GENERAL: The patient is awake, alert, and fully oriented, in no acute distress. HEAD: Normal with no signs of trauma. EYES: PERRL, extraocular movements intact, sclera anicteric, conjunctiva clear. ENT: Ears normal, nares patent, oropharynx clear without exudates, moist mucous membranes. NECK: Trachea midline, full range of motion, supple. LUNGS: Breath sounds equal, clear to auscultation bilaterally HEART: Regular rate and rhythm, S1, S2 without murmur, rub or gallop. ABDOMEN: Soft, nontender, nondistended, normoactive bowel sounds, no guarding, no rebound, no hepatosplenomegaly, no masses. EXTREMITIES: 2+ pulses, warm, well-perfused, no edema. NEUROLOGICAL: Cranial nerves II through XII grossly intact. Normal speech, gait not observed. PSYCH: Normal mood, normal affect. SKIN: Warm, dry, normal turgor, no rashes or lesions noted. LABS Laboratory Results - last 24 hr 01/05/18 01/05/18 06:30 06:30 WBC 9.1 RBC 5.18 Hgb 15.3 Hct 44.8 MCV 86.6 MCH 29.5 MCHC 34.1 RDW 13.5 Plt Count 328 MPV 9.4 Neutrophils % 66.9 Lymphocytes % 23.4 D Monocytes % 7.2 Eosinophils % 1.6 Basophils % 0.9 Sodium 139 Potassium 4.0 Chloride 103 Carbon Dioxide 25 Anion Gap 11 BUN 12 Creatinine 0.8 Creat Clearance w eGFR > 60 Random Glucose 112 H Calcium 9.1 Total Bilirubin 0.4 D AST 45 H D ALT 262 H D Alkaline Phosphatase 200 H Total Protein 7.1 Albumin 3.6 HOSPITAL COURSE: Date of Admission:12/29/17 Date of Discharge: 01/05/18 Discharge Summary Reason For Visit: ACUTE CALCULOUS CHOLECYSTITIS Current Active Problems Abdominal pain (Acute) Acute calculous cholecystitis (Acute) Elevated liver enzymes (Acute) Condition: Stable - Instructions Diet, Activity, Other Instructions: Dr. Phelps Discharge Instructions Dear BRAD DEVI, Post Operative Instructions Physical activity Resume your normal everyday activity as tolerated no heavy lifting or exercise until seen by your surgeon. You may walk unlimited amounts of and climb stairs. You may resume driving the car when you feel safe and comfortable behind the wheel. Wound care Keep your incision clean/dry and covered. No showers, sponge bath only. Diet There are no dietary restrictions. Eat healthy, high-fiber foods. Drink 6 to 8 glasses of liquid each day. This will assist in keeping your bowels are regular. Pain management You may take Tylenol or acetaminophen or Ibuprofen (for example, Motrin, Advil etc.) Any pain prescription medication ordered should be taken as prescribed for moderate to severe pain. Call Dr. Phelps for any of the following: Severe pain not relieved by medication Fever of 101 or higher Excessive bleeding or drainage on dressing Inability to urinate Call the office at [phone] for a post operative appointment in 7 - [address] Reese. You will need to have your labs repeated to monitor your liver function. -> January 07 At [address] Reese. Referrals: Kannan Reese MD [Primary Care Provider] - Disposition: HOME - Home Medications Comprehensive Discharge Medication List: Ambulatory Orders No Home Medications 0 dose .ROUTE UTDICT 06/27/13
[2018-01-05 12:36] VITALS: BP 135/95; PULSE 80; TEMP 97.4
--- NOTE | 2018-01-05 13:35 | PN ---
Progress Note, Physician History of Present Illness: doing well no issues no complaints feels good - Current Medication List Current Medications: Active Medications Diphenhydramine HCl (Benadryl Injection -) 12.5 mg IVPUSH ONCE PRN PRN Reason: FOR ITCHING Docusate Sodium (Colace -) 300 mg PO HS [facility] Last Admin: 01/04/18 21:43 Dose: 300 mg Heparin Sodium (Porcine) (Heparin -) 5,000 unit SQ TID [facility] Last Admin: 01/05/18 05:53 Dose: 5,000 unit Oxycodone HCl (Roxicodone -) 5 mg PO Q6H PRN PRN Reason: PAIN 1-5 Last Admin: 01/05/18 04:22 Dose: 5 mg Polyethylene Glycol (Miralax (For Daily Use) -) 17 gm PO DAILY [facility] Last Admin: 01/05/18 11:00 Dose: Not Given Ursodiol (Actigal -) 300 mg PO BID [facility] Last Admin: 01/05/18 11:02 Dose: 300 mg - Objective Vital Signs: Vital Signs Temperature 97.4 F L 01/05/18 10:00 Pulse Rate 80 01/05/18 10:00 Respiratory Rate 20 01/05/18 10:00 Blood Pressure 135/95 01/05/18 10:00 O2 Sat by Pulse Oximetry (%) 93 L 01/05/18 09:00 Constitutional: Yes: No Distress, Calm Cardiovascular: Yes: Regular Rate and Rhythm Respiratory: Yes: Regular, CTA Bilaterally Gastrointestinal: Yes: Normal Bowel Sounds, Soft Musculoskeletal: Yes: WNL Extremities: Yes: WNL Wound/Incision: Yes: Dressing Dry and Intact Neurological: Yes: Alert, Oriented Psychiatric: Yes: Alert, Oriented Labs: CBC, BMP 01/05/18 06:30 01/05/18 06:30 INR, PTT INR 0.99 (0.82-1.09) 12/30/17 06:35 Assessment/Plan Problem List - Problems (1) Abdominal pain Code(s): R10.9 - UNSPECIFIED ABDOMINAL PAIN 2 leukocytosis (3) Elevated liver enzymes Code(s): R74.8 - ABNORMAL LEVELS OF OTHER SERUM ENZYMES plan stable pain control wound care rest as per surgery
== END 2018-01-05 14:16 | disposition home or self-care (01) | DRG 262 ==
LOC: JER 09:14 → JERBED 15:56 → J5S 19:36 → JSAMEDAYSX 12-30 13:30 → J8W 12-30 22:30
PROVIDERS: ADMIT Internal Medicine; ATTEND Nurse Practitioner Family
PROC: 0FT40ZZ Resection of Gallbladder, Open Approach (ICD-10-PCS; principal; 2017-12-31)
PROC: 0FJ44ZZ Inspection of Gallbladder, Percutaneous Endoscopic Approach (ICD-10-PCS; 2017-12-31)
PROC: BF13YZZ Fluoroscopy of Gallbladder and Bile Ducts using Other Contrast (ICD-10-PCS; 2017-12-31)
DX: K80.00 Calculus of gallbladder with acute cholecystitis without obstruction (principal); R74.8 Abnormal levels of other serum enzymes; Z53.31 Laparoscopic surgical procedure converted to open procedure; R50.9 Fever, unspecified; E66.9 Obesity, unspecified; Z68.31 Body mass index [BMI] 31.0-31.9, adult; R10.9 Unspecified abdominal pain; R21 Rash and other nonspecific skin eruption; F17.210 Nicotine dependence, cigarettes, uncomplicated; D72.829 Elevated white blood cell count, unspecified
CPT/HCPCS: 36415; 71045-TC-FY; 74018-TC-FY; 76705-TC; 78226-TC; 80048; 80053; 80076; 81003; 83690; 84484; 85025; 85610; 86850; 86900; 86901; 87086; 88304-TC; 93005; 93010; 94760; 99284-25; A9537; J0131; J1170; J1644; J7030

== ENCOUNTER 2019-01-29 10:06 | Emergency (ER) | payer OTHER ==
[2019-01-29 10:13] VITALS: BP 120/75; PULSE 95; TEMP 98; BMI 30.1
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
== END 2019-01-29 12:25 | disposition home or self-care (01) ==
LOC: JERFT 10:06
PROC: 2W3QX1Z Immobilization of Right Lower Leg using Splint (ICD-10-PCS; principal; 2019-01-29)
DX: S82.51XA Displaced fracture of medial malleolus of right tibia, initial encounter for closed fracture (principal); V28.4XXA Motorcycle driver injured in noncollision transport accident in traffic accident, initial encounter; Y93.89 Activity, other specified; Y92.410 Unspecified street and highway as the place of occurrence of the external cause; F17.210 Nicotine dependence, cigarettes, uncomplicated
CPT/HCPCS: 73590-TC-RT-FY; 73610-TC-RT-FY; 73630-TC-RT-FY; 99282-25

== ENCOUNTER 2019-02-18 10:17 | Day surgery (SDC) | payer OTHER ==
[2019-02-18] MEDS ORDERED: DEXAMETHASONE SOD PHOSPHATE/PF 10 MG/ML SDV ONE (10:41)
[2019-02-18] MEDS ORDERED: MIDAZOLAM HCL 2 MG/2 ML SINGLE DOSE VIAL ONE ×2 (10:41→13:15)
[2019-02-18] MEDS ORDERED: BUPIVACAINE HCL/PF (5 MG/ML) 30 ML VIAL IJ ONE (10:41)
--- NOTE | 2019-02-18 12:24 | OP ---
Operative Note - Note: Operative Date: 02/18/19 Pre-Operative Diagnosis: Right ankle fracture Operation: Right ankle ORIF Post-Operative Diagnosis: Same as Pre-op Surgeon: Ameya Potts Firepot Operator And Tender: Miranda Cristobal Anesthesia: Spinal Operative Report Dictated: Yes
[2019-02-18] MEDS ORDERED: LIDOCAINE HCL/PF 2% SDV 5ML VIAL ONE (13:12)
[2019-02-18] MEDS ORDERED: PROPOFOL 20 ML ONE ×4 (13:12→13:17)
[2019-02-18] MEDS ORDERED: ceFAZolin SODIUM 1 GM VIAL ONE (13:21)
[2019-02-18] MEDS ORDERED: KETOROLAC TROMETHAMINE 30 MG/1 ML VIAL ONE (13:27)
[2019-02-18] MEDS ORDERED: ACETAMINOPHEN 1000 MG/100 ML VIAL (NON FORMULARY) IVPB ONE (13:55)
[2019-02-18] MEDS ORDERED: ONDANSETRON 4 MG/2 ML VIAL IVPUSH PRN (13:55)
[2019-02-18] MEDS ORDERED: oxyCODONE HCL 5 MG TABLET PO PRN ×2 (13:55)
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
[2019-02-18 15:58] VITALS: TEMP 97.7
[2019-02-18] MEDS ORDERED: oxyCODONE HCL 5 MG TABLET ONE (16:13)
[2019-02-18 16:34] VITALS: PULSE 68
[2019-02-18 16:51] VITALS: BP 137/74
[2019-02-19 06:11] LABS: HBsAG SCREEN Negative (Negative)
== END 2019-02-18 17:30 | disposition home or self-care (01) ==
LOC: FASU 10:17
PROVIDERS: ATTEND Orthopaedic Surgery Sports Medicine
PROC: 0QSG04Z Reposition Right Tibia with Internal Fixation Device, Open Approach (ICD-10-PCS; principal; 2019-02-18 13:29)
DX: S82.51XA Displaced fracture of medial malleolus of right tibia, initial encounter for closed fracture (principal); X58.XXXA Exposure to other specified factors, initial encounter; Y93.9 Activity, unspecified; Y92.9 Unspecified place or not applicable
CPT/HCPCS: 36415; 73610-TC-RT-FY; 84460; 86803; 87340; 94760

== ENCOUNTER 2019-08-18 11:41 | Emergency (ER) | payer OTHER ==
[2019-08-18 11:48] VITALS: BP 142/75; PULSE 104; TEMP 97.9; BMI 30.1
[2019-08-18] MEDS ORDERED: IBUPROFEN 400 MG TABLET (FP) PO ONE ×2 (12:38→12:41)
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
== END 2019-08-18 13:10 | disposition home or self-care (01) ==
LOC: JERFT 11:41
DX: S93.401A Sprain of unspecified ligament of right ankle, initial encounter (principal); W11.XXXA Fall on and from ladder, initial encounter; Y93.89 Activity, other specified; Y92.89 Other specified places as the place of occurrence of the external cause; F17.210 Nicotine dependence, cigarettes, uncomplicated
CPT/HCPCS: 73610-TC-RT-FY; 99281-25

== ENCOUNTER 2021-12-15 20:53 | Emergency (ER) | payer OTHER ==
[2021-12-15 21:04] VITALS: BP 126/82; PULSE 94; TEMP 98.1; BMI 29.4
[2021-12-15] MEDS ORDERED: ACETAMINOPHEN 500 MG TABLET (FP) PO ONE (21:32)
[2021-12-15] MEDS ORDERED: ACETAMINOPHEN 500 MG TABLET (FP) ONE (21:50)
== END 2021-12-16 01:41 | disposition home or self-care (01) ==
LOC: JER 20:53
DX: S52.121A Displaced fracture of head of right radius, initial encounter for closed fracture (principal); V29.9XXA Motorcycle rider (driver) (passenger) injured in unspecified traffic accident, initial encounter
CPT/HCPCS: 70450-TC; 72125-TC; 73030-TC-RT-FY; 73060-TC-RT-FY; 73070-TC-RT-FY; 73090-TC-RT-FY; 73110-TC-RT-FY; 73130-TC-RT-FY; 99284-25

== ENCOUNTER 2023-07-09 15:18 | Emergency (ER) | payer OTHER ==
[2023-07-09 15:34] VITALS: BP 131/71; PULSE 77; RESP 18; TEMP 98.3; BMI 33.0
[2023-07-09] MEDS ORDERED: SODIUM CHLORIDE 0.9% 500 ML INFUS.BAG IV ONE (16:13)
[2023-07-09] MEDS ORDERED: METOCLOPRAMIDE HCL INJECTION 10 MG/2 ML VIAL IVPB ONE (16:16)
[2023-07-09 17:31] LABS: EPI CELLS 20 /uL (0-25.1); HYALINE CASTS 10 /uL (0-3.1); PH,URINE 5.5 (5.0-8.0); URINE APPEARANCE TURBID; URINE BACTERIA 22 /uL (0-1359); URINE BILIRUBIN 1+ (NEGATIVE); URINE COLOR DK YELLOW; URINE GLUCOSE (UA) NEGATIVE (NEGATIVE); URINE KETONE NEGATIVE (NEGATIVE); URINE LEUK ESTERASE NEGATIVE (NEGATIVE); URINE NITRITE NEGATIVE (NEGATIVE); URINE PROTEIN 1+ (NEGATIVE); URINE RBC 6 /uL (0-23.9); URINE WBC 14 /uL (0-25.8)
[2023-07-09 17:36] LABS: COCAINE, UR NEGATIVE (NEGATIVE); URINE AMPHETAMINES NEGATIVE (NEGATIVE)
[2023-07-09 17:37] LABS: PHENCYCLIDINE,URINE NEGATIVE (NEGATIVE); URINE BARBITURATES NEGATIVE (NEGATIVE)
[2023-07-09 17:45] LABS: METHADONE, UR NEGATIVE (NEGATIVE); OPIATES, URI NEGATIVE (NEGATIVE); URINE BENZODIAZEPINES POSITIVE (NEGATIVE)
== END 2023-07-09 17:00 | disposition left against medical advice (07) ==
LOC: JER 15:18
PROC: 3E033NZ Introduction of Analgesics, Hypnotics, Sedatives into Peripheral Vein, Percutaneous Approach (ICD-10-PCS; principal; 2023-07-09)
DX: R42 Dizziness and giddiness (principal); F12.920 Cannabis use, unspecified with intoxication, uncomplicated; F13.920 Sedative, hypnotic or anxiolytic use, unspecified with intoxication, uncomplicated; R11.2 Nausea with vomiting, unspecified
CPT/HCPCS: 71046-TC-FY; 80307; 81003; 93005; 93010; 99285-25

== ENCOUNTER 2024-03-18 13:08 | Emergency (ER) | payer OTHER ==
[2024-03-18 13:15] VITALS: BP 132/94; PULSE 93; RESP 18; TEMP 98.3; BMI 30.8
[2024-03-18] MEDS ORDERED: ACETAMINOPHEN 1000 MG/100 ML BAG IVPB ONE (13:57)
[2024-03-18] MEDS ORDERED: FAMOTIDINE 20 MG/50 ML IVPB 20 MG/50 ML MG IVPB ONE ×2 (13:57→14:04)
[2024-03-18] MEDS ORDERED: ONDANSETRON 4 MG/2 ML VIAL IVPUSH ONE (13:57)
[2024-03-18] MEDS ORDERED: SODIUM CHLORIDE 0.9% 500 ML INFUS.BAG IV ONE (13:57)
[2024-03-18] MEDS ORDERED: MAG HYDROX/AL HYDROX/SIMETH 30 ML UNIT-DOSE CUP PO ONE (13:58)
[2024-03-18] MEDS ORDERED: ACETAMINOPHEN INJECTION 100 ML IVPB ONE (14:03)
[2024-03-18] MEDS ORDERED: MAG HYDROX/AL HYDROX/SIMETH 30 ML UNIT-DOSE CUP ONE (14:04)
[2024-03-18] MEDS ORDERED: ONDANSETRON 4 MG/2 ML VIAL ONE (14:04)
== END 2024-03-18 15:28 | disposition left against medical advice (07) ==
LOC: JER 13:08
DX: R10.31 Right lower quadrant pain (principal); R10.11 Right upper quadrant pain
CPT/HCPCS: 99283-25; 99285-25